=== PATIENT | male | born 1970 | race Caucasian/White ===

== ENCOUNTER 2017-12-31 08:59 | Emergency (ER) | payer SELFPAY ==
[~2017-12-31] VITALS: Ht 182.9 cm; Wt 97.5 kg
--- NOTE | 2017-12-31 09:37 | ED Respiratory ---
General Chief Complaint: Cough/Cold/Flu Symptoms Stated Complaint: COUGH,CHEST DISCOMFORT,WHEEZING Nursing Triage Note: c/o cough/congestion/wheezing with chest tightness. Onset 3-4 days ago. Persistant coughing spells reported. Source: patient Exam Limitations: no limitations History of Present Illness Date Seen by Provider: Dec 31, 2017 Time Seen by Provider: 09:15 Initial Comments This 47 and gentleman presents to the emergency room with primary complaint of cough and wheezing. His chest feels tight with his cough. The chest discomfort worsens with coughing and inspiration. He has had posttussive emesis as well. He denies fever. He's been using his father's inhaler which has been a little bit helpful temporarily. He chews tobacco but denies smoking. He does not drink alcohol. He has been afebrile. Allergies and Home Medications Allergies Coded Allergies: No Known Drug Allergies (Unverified , 12/31/17) Home Medications Albuterol Sulfate 1 Puff Puff, 1-4 PUFF IH Q4H PRN for SHORTNESS OF BREATH 1 PUFF = 90 MCG Prescribed by: MARCELLO GARSIA on 12/31/17 1056 Benzonatate 200 Mg Capsule, 200 MG PO TID PRN for COUGH Prescribed by: MARCELLO GARSIA on 12/31/17 1056 Prednisone 20 Mg Tab, 40 MG PO DAILY Prescribed by: MARCELLO GARSIA on 12/31/17 1056 Constitutional: no symptoms reported EENTM: no symptoms reported Respiratory: see HPI Cardiovascular: no symptoms reported Gastrointestinal: see HPI Genitourinary: no symptoms reported Musculoskeletal: no symptoms reported Skin: no symptoms reported Psychiatric/Neurological: No Symptoms Reported Hematologic/Lymphatic: No Symptoms Reported Past Nqxxhzm-Nyhpvr-Gnjhqb Hx Patient Social History Alcohol Use: Denies Use Recreational Drug Use: No Smoking Status: Never a Smoker Recent Foreign Travel: No Contact w/Someone Who Travel: No Recent Infectious Disease Expo: No Surgeries History of Surgeries: Yes (C6-C7 fusion, right shoulder repair) Surgeries: Orthopedic Respiratory History of Respiratory Disorde: No Cardiovascular History of Cardiac Disorders: Yes Cardiac Disorders: Heart Attack (states "stress related heart attack") Neurological History of Neurological Disord: No Genitourinary History of Genitourinary Disor: No Gastrointestinal History of Gastrointestinal Di: No Musculoskeletal History of Musculoskeletal Dis: No Endocrine History of Endocrine Disorders: No HEENT History of HEENT Disorders: No Cancer History of Cancer: No Psychosocial History of Psychiatric Problem: No Blood Transfusions History of Blood Disorders: No Physical Exam Vital Signs Vital Signs - First Documented 12/31/17 09:10 Temp 97.5 Pulse 90 Resp 18 B/P (MAP) 122/87 (99) Pulse Ox 95 O2 Delivery Room Air Capillary Refill : Less Than 3 Seconds General Appearance: WD/WN, no apparent distress HEENT: PERRL/EOMI, normal ENT inspection, TMs normal, pharynx normal Neck: normal inspection Respiratory: no respiratory distress, no accessory muscle use, wheezing, other (mildly delayed forced expiration. 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, no motor/sensory deficits, alert, normal mood/affect, oriented x 3 Skin: normal color, warm/dry Progress/Results/Core Measures Suspected Sepsis Recent Fever Within 48 Hours: No Infection Criteria Present: Suspected New Infection New/Unexplained Altered Menta: No Sepsis Screen: No Definite Risk Sepsis Diagnosis: SIRS Temperature:97.5 Pulse: 90 Respiratory Rate: 18 Blood Pressure 122 /87 Mean: 99 Results/Orders My Orders Orders - MARCELLO FARRELL MD Chest Pa/Lat (2 View) (12/31/17 09:33) Albuterol/Ipra Inhalation Soln (Duoneb I (12/31/17 09:45) Svn Sm Volume Nebulizer Rt-Rfs (12/31/17 09:33) Ketorolac Injection (Toradol Injection) (12/31/17 10:35) Medications Given in ED Current Medications Medications Dose Ordered Sig/Kena Route Start Time Stop Time Status Last Admin Dose Admin Albuterol/ Ipratropium 3 ml ONCE ONCE INH 12/31/17 09:45 12/31/17 09:46 DC 12/31/17 09:44 3 ML Ketorolac Tromethamine 30 mg STK-MED ONCE .ROUTE 12/31/17 10:35 12/31/17 10:39 DC 12/31/17 10:43 30 MG Vital Signs/I&O Vital Sign - Last 12Hours 12/31/17 12/31/17 12/31/17 12/31/17 09:10 09:45 10:43 11:03 Temp 97.5 97.5 97.5 Pulse 90 86 Resp 18 18 B/P (MAP) 122/87 (99) 122/84 (99) Pulse Ox 95 99 99 O2 Delivery Room Air Room Air Room Air Capillary Refill : Less Than 3 Seconds Blood Pressure Mean: 99 Progress Note #1: Time: 09:36 Progress Note Patient has been seen and examined. A DuoNeb treatment was ordered as well as a chest x-ray. I will reassess after the nebulizer treatment. Progress Note #2: Progress Note Chest pressure/tightness did improve some with DuoNeb. Chest x-ray was negative. I confirmed with patient that pain was secondary to paroxysms of coughing and not present otherwise or induced with by exertion. Patient was thought to have acute viral bronchitis. Diagnostic Imaging Diagonstic Imaging: Xray Plain Films/CT/US/NM/MRI: chest Comments Chest x-ray viewed by me and report reviewed. See report below: NAME: PENNY FOX MED REC#: [id number] PT STATUS: REG ER : 1970 PHYSICIAN: MARCELLO FARRELL MD ADMIT DATE: 12/31/17/ER Draft Date of Exam:12/31/17 CHEST PA/LAT (2 VIEW) INDICATION: Cough and chest pain. PA and lateral chest. Heart size and pulmonary vascularity normal. Lungs are clear. There are no effusions or pneumothoraces. IMPRESSION: Negative chest. Dictated on workstation # [id number] Dict: 12/31/17 1033 Trans: 12/31/17 1036 [facility] [id number] Interpreted by: JUSTIN AHMADI MD Departure Impression Impression: Primary Impression: Acute bronchitis Qualified Codes: J20.9 - Acute bronchitis, unspecified Additional Impression: Pleuritic chest pain Disposition: 01 HOME, SELF-CARE Condition: Improved Departure-Patient Inst. Decision time for Depature: 10:50 Referrals: NO,LOCAL PHYSICIAN (PCP/Family) Primary Care Physician Patient Instructions: Acute Bronchitis, Adult (DC) Add. Discharge Instructions: Drink plenty of clear liquids. For pain may take ibuprofen up to 600 mg every 6 hours as needed and/or Tylenol (acetaminophen) up to 1000 mg every 6 hours. For shortness of air use your inhaler up to 4 puffs and a 4 hour period of time. For cough you may also use either asxa-zwo-zstqqzm medications containing dextromethorphan (DM) or the Tessalon Perles as prescribed. Return to care if symptoms worsen. Establish care with a primary care provider. You may consider the [facility] which has a sliding scale payment plan for those without insurance. All discharge instructions reviewed with patient and/or family. Voiced understanding. Scripts Prednisone (Prednisone) 20 Mg Tab 40 MG PO DAILY, #8 TAB Prov: MARCELLO FARRELL MD 12/31/17 Benzonatate (Benzonatate) 200 Mg Capsule 200 MG PO TID Y for COUGH, #20 CAP Prov: MARCELLO FARRELL MD 12/31/17 Albuterol Sulfate (PROAIR HFA) 1 Puff Puff 1-4 PUFF IH Q4H Y for SHORTNESS OF BREATH, #1 PUFF 1 PUFF = 90 MCG Prov: MARCELLO FARRELL MD 12/31/17 MARCELLO FARRELL MD Dec 31, 2017 09:37
[2017-12-31] MEDS ORDERED: RT-ALBUTEROL/IPRATROPIUM 3 ML (DUONEB) VIAL INH ONE (09:45)
[2017-12-31] MEDS ORDERED: KETOROLAC 30 MG/ML VIAL ONE (10:35)
--- NOTE | 2017-12-31 10:37 | Diagnostic Imaging Report ---
INDICATION: Cough and chest pain. PA and lateral chest. Heart size and pulmonary vascularity normal. Lungs are clear. There are no effusions or pneumothoraces. IMPRESSION: Negative chest. Dictated by: Dictated on workstation # [id number]
[2017-12-31] MEDS ORDERED: RT-ALBUINH IH (10:56)
[2017-12-31] MEDS ORDERED: PRD20T PO (10:56)
[2017-12-31] MEDS ORDERED: BENZ200C51 PO (10:56)
[2017-12-31 11:03] VITALS: BP 122/84
== END 2017-12-31 11:03 | disposition home or self-care (01) ==
LOC: EDUNIT# 08:59 → ER 09:03
DX: J20.9 Acute bronchitis, unspecified (principal); R07.81 Pleurodynia; I25.2 Old myocardial infarction; Z79.52 Long term (current) use of systemic steroids; Z98.1 Arthrodesis status
CPT/HCPCS: 71046; 94640; 96374

== ENCOUNTER 2018-06-20 19:43 | Emergency (ER) | payer SELFPAY ==
[~2018-06-20] VITALS: Ht 188 cm; Wt 90.7 kg
[~2018-06-20 19:43] MED LIST: BENZ200C51 PO; PRD20T PO; RT-ALBUINH IH
--- NOTE | 2018-06-20 20:28 | Diagnostic Imaging Report ---
INDICATION: Back pain. Comparison is made with prior examination from 12/31/2017. FINDINGS: The heart size, mediastinal configuration, and pulmonary vascularity are within normal limits. There is no pleural effusion, pneumothorax, or pneumonia. The osseous structures are unremarkable. IMPRESSION: No acute cardiopulmonary abnormality. Dictated by: Dictated on workstation # [id number]
[2018-06-20 20:33] LABS: BILIRUBIN,URINE NEGATIVE (NEGATIVE); CLARITY,URINE CLEAR; COLOR,URINE YELLOW; GLUCOSE, URINE (UA) NEGATIVE (NEGATIVE); KETONES,URINE NEGATIVE (NEGATIVE); LEUKOCYTE ESTERASE ,URINE NEGATIVE (NEGATIVE); NITRITE,URINE NEGATIVE (NEGATIVE); PH,URINE 7 (5-9); PROTEIN,URINE NEGATIVE (NEGATIVE); UROBILINOGEN,URINE NORMAL (NORMAL)
--- NOTE | 2018-06-20 20:39 | Diagnostic Imaging Report ---
PROCEDURE: CT head and CT cervical spine without contrast. TECHNIQUE: Multiple contiguous axial images were obtained through the brain and cervical spine without the use of intravenous contrast. Sagittal and coronal reformations through the cervical spine were then performed. INDICATION: Head and neck pain. FINDINGS: The ventricles and sulci are within normal limits. There is no hydrocephalus. There is no midline shift. There is no intracranial mass, hemorrhage or extra-axial fluid collection. Calvarium is intact. The sinuses and mastoid air cells are clear. The alignment of the cervical spine is normal. There has been an anterior cervical fusion of C6-7. The vertebral body heights are well maintained. There is no fracture or traumatic subluxation. The odontoid is intact and the lateral masses are well aligned. The prevertebral soft tissues are within normal limits. IMPRESSION: 1. No acute intracranial abnormality. 2. Mild cervical spondylosis with previous anterior cervical fusion at C6-7. There is no acute fracture or traumatic subluxation. Dictated by: Dictated on workstation # [id number]
[2018-06-20 20:42] LABS: BACTERIA,URINE NEGATIVE /HPF; WBC,URINE RARE /HPF
[2018-06-20] MEDS ORDERED: KETOROLAC 30 MG/ML VIAL IVP ONE (20:45)
[2018-06-20] MEDS ORDERED: diphenhydrAMINE 50 MG/ML INJ (BENADRYL) IVP ONE (20:45)
[2018-06-20] MEDS ORDERED: ORPHENADRINE 60 MG/2 ML (NORFLEX) AMP IV ONE (20:45)
[2018-06-20 20:49] LABS: BASOPHILS % (AUTO) 1 % (0-10); EOSINOPHILS # (AUTO) 0.3 10^3/uL (0.0-0.3); EOSINOPHILS % (AUTO) 4 % (0-10); HEMATOCRIT 40 % (40-54); HEMOGLOBIN 14.1 G/DL (13.3-17.7); LYMPHOCYTES # (AUTO) 2.3 X 10^3 (1.0-4.0); LYMPHOCYTES % (AUTO) 32 % (12-44); MEAN CORPUSCULAR HEMOGLOBIN 29 PG (25-34); MEAN CORPUSCULAR HGB CONC 36 G/DL (32-36); MEAN CORPUSCULAR VOLUME 82 FL (80-99); MEAN PLATELET VOLUME 9.1 FL (7.4-10.4); MONOCYTES # (AUTO) 0.5 X 10^3 (0.0-1.0); MONOCYTES % (AUTO) 7 % (0-12); NEUTROPHILS # (AUTO) 4.1 X 10^3 (1.8-7.8); NEUTROPHILS % (AUTO) 56 % (42-75); PLATELET COUNT 275 10^3/uL (130-400); RED BLOOD COUNT 4.81 10^6/uL (4.35-5.85); WHITE BLOOD COUNT 7.3 10^3/uL (4.3-11.0)
[2018-06-20 20:53] LABS: AMPHETAMINE SCREEN, URINE NEGATIVE (NEGATIVE); BARBITURATE SCREEN URINE NEGATIVE (NEGATIVE); BENZODIAZEPINES SCREEN URINE NEGATIVE (NEGATIVE); CANNABINOID SCREEN, URINE NEGATIVE (NEGATIVE); COCAINE SCREEN URINE NEGATIVE (NEGATIVE); METHADONE STAT NEGATIVE (NEGATIVE); METHAMPHETAMINE SCREEN URINE S NEGATIVE (NEGATIVE); OPIATE SCREEN URINE NEGATIVE (NEGATIVE); OXYCODONE STAT NEGATIVE (NEGATIVE); PROPOXYPHENE STAT NEGATIVE (NEGATIVE); TRICYCLIC ANTIDEPRESSANTS SCRE NEGATIVE (NEGATIVE)
--- NOTE | 2018-06-20 20:55 | Diagnostic Imaging Report ---
INDICATION: Back pain. EXAMINATION: CT of the thoracolumbar spine. FINDINGS: The alignment of the thoracic and lumbar spine is normal. The vertebral body heights are well maintained. There is no spondylolysis or spondylolisthesis. No fractures are identified. There is no bony encroachment upon the spinal canal. The visualized lungs are clear. The visualized intraabdominal structures are unremarkable. There is mild lower lumbar hypertrophic degenerative facet disease. IMPRESSION: 1. No acute fracture or traumatic subluxation of the thoracic lumbar spine. 2. Mild lower lumbar hypertrophic degenerative facet disease. Dictated by: Dictated on workstation # [id number]
[2018-06-20 21:01] LABS: INR 1.1 (0.8-1.4); PROTHROMBIN TIME PATIENT 14.5 SEC (12.2-14.7)
[2018-06-20 21:14] LABS: ALANINE AMINOTRANSFERASE 17 U/L (0-55); ALBUMIN 3.9 GM/DL (3.2-4.5); ALKALINE PHOSPHATASE 51 U/L (40-136); BILIRUBIN,TOTAL 0.4 MG/DL (0.1-1.0); BUN/CREATININE RATIO 17; CARBON DIOXIDE 21 MMOL/L (21-32); CHLORIDE 107 MMOL/L (98-107); CREATININE SERUM 0.96 MG/DL (0.60-1.30); GFR ESTIMATED > 60; GLUCOSE 115 MG/DL (70-105); POTASSIUM 3.4 MMOL/L (3.6-5.0); SODIUM 138 MMOL/L (135-145); TOTAL PROTEIN 6.8 GM/DL (6.4-8.2)
[2018-06-20] MEDS ORDERED: RX-CYCLOBENZAPRINE 10 MG (FLEXERIL) TAB PPK#3 PO STA (21:17)
[2018-06-20] MEDS ORDERED: RX-NAPROXEN (NAPROSYN) 250 MG TAB PPK#4 PO STA (21:17)
[2018-06-20] MEDS ORDERED: METH4TAB PO (21:22)
[2018-06-20] MEDS ORDERED: CYCL10TA9 PO (21:22)
--- NOTE | 2018-06-20 21:22 | ED Neck-Back Pain/Injury ---
General Chief Complaint: Head/Cervical Problems Stated Complaint: FALL Nursing Triage Note: pt states rolled over in bed hit head on window, now has pain/numbness in mik extremities. pt verbalized can feel but has numbness, able to move mik toes and squeeze hands mik. Nursing Sepsis Screen: No Definite Risk Source of Information: Patient, EMS History of Present Illness Date Seen by Provider: Jun 20, 2018 Time Seen by Provider: 19:45 Initial Comments PT ARRIVES VIA [facility] FROM HOME + CERVICAL COLLAR IN PLACE PT STATES AROUND 1800 TONIGHT, HE ROLLED OVER IN BED AND BUMPED HIS HEAD ON WINDOW SILL STATES THAT "INSTANTLY MY WHOLE BODY LOCKED UP" NO LOSS OF CONSCIOUSNESS C/O NECK, BACK AND BILATERAL SHOULDER PAIN--DOES HAVE CHRONIC PAIN IN ALL THESE AREAS, AND HAS HYDROCODONE AT HOME, BUT DID NOT TAKE IT OR ANYTHING ELSE FOR PAIN STATES HE HAS TINGLING/NUMBNESS IN HIS ARMS AND LEGS, BUT CAN MOVE THEM, AND CAN FEEL THEM. EMS GAVE 100 MCG FENTANYL PRIOR TO ARRIVAL. PT STATES NOW HE DOES NOT FEEL NUMB AND TINGLY NO HEAD PAIN NO VISION CHANGES NO NAUSEA/VOMITING NO DIZZINESS PT HAS HAD PRIOR NECK INJURY IN 2015 AND HAD CERVICAL SPINE SURGERY 03/2017 BY [facility]/[place]. DOES NOT SEE THAT DR OR ANYONE ANYMORE. Other Comments NO PCP Allergies and Home Medications Allergies Coded Allergies: No Known Drug Allergies (Unverified , 12/31/17) Home Medications Albuterol Sulfate 1 Puff Puff, 1-4 PUFF IH Q4H PRN for SHORTNESS OF BREATH 1 PUFF = 90 MCG Prescribed by: MARCELLO GARSIA on 12/31/17 105 Benzonatate 200 Mg Capsule, 200 MG PO TID PRN for COUGH Prescribed by: MARCELLO GARSIA on 12/31/17 105 Cyclobenzaprine HCl 10 Mg Tablet, 10 MG PO Q8H Prescribed by: TRACI COOPER on 06/20/182121 Methylprednisolone 4 Mg Tab.ds.pk, 4 MG PO UD Prescribed by: TRACI COOPER on 06/20/182121 Prednisone 20 Mg Tab, 40 MG PO DAILY Prescribed by: MARCELLO GRASIA on 12/31/17 1056 Patient Home Medication List Home Medication List Reviewed: Yes Constitutional: no symptoms reported EENTM: no symptoms reported Respiratory: no symptoms reported Cardiovascular: no symptoms reported Gastrointestinal: no symptoms reported Genitourinary: no symptoms reported Musculoskeletal: see HPI, back pain, neck pain, other (BILATERAL SHOULDER PAIN ) Skin: no symptoms reported Psychiatric/Neurological: See HPI; Denies Headache; Numbness, Paresthesia, Tingling; Denies Weakness Past Lrdrulj-Aniiaj-Nhxggc Hx Patient Social History Alcohol Use: Denies Use Recreational Drug Use: No (DENIES) Smoking Status: Current Everyday Smoker (1 PPD) Type Used: Cigarettes (1 PPD) Recent Foreign Travel: No Contact w/Someone Who Travel: No Recent Infectious Disease Expo: No Past Medical History Surgeries: Yes (C6-C7 fusion, right shoulder repair) Orthopedic Respiratory: No Cardiac: Yes (PT STATES "STRESS HEART ATTACK" NO INTERVENTION) Heart Attack Neurological: No Genitourinary: No Gastrointestinal: No Musculoskeletal: Yes (CHRONIC NECK, BACK AND SHOULDER PAIN ) Chronic Back Pain Endocrine: No HEENT: No Cancer: No Psychosocial: No Integumentary: No Blood Disorders: No Physical Exam Vital Signs Vital Signs - First Documented 06/20/18 19:54 Temp 97.9 Pulse 77 Resp 20 B/P (MAP) 145/103 (117) Pulse Ox 96 O2 Delivery Room Air Capillary Refill : Less Than 3 Seconds Height, Weight, BMI Height: 6'2.00" Weight: 200lbs. oz. 90.103941da; BMI Method:Stated General Appearance: No Apparent Distress, WD/WN, Other (VERY DRAMATIC AND MARKEDLY EXAGGERATED PAIN RESPONSE) HEENT: PERRL/EOMI, Other (EXTENSIVE DENTAL DECAY--NEARLY ALL TEETH DECAYED DOWN TO GUMS. NO EXTERNAL EVIDENCE OF TRAUMA TO HEAD) Neck: Other (IN CERVICAL COLLAR ) Cardiovascular: Regular Rate, Rhythm, No Edema, No JVD, No Murmur, Normal Peripheral Pulses Respiratory: Normal Breath Sounds, No Accessory Muscle Use, No Respiratory Distress Peripheral Pulses: 2+ Dorsalis Pedis (R), 2+ Left Dors-Pedis (L), 2+ Radial Pulses (R), 2+ Radial Pulses (L) Gastrointestinal: Normal Bowel Sounds, No Organomegaly, No Pulsatile Mass, Non Tender, Soft Back: Other (DIFFUSE TENDERNESS) Extremity: Normal Capillary Refill, Normal Inspection, Normal Range of Motion, No Calf Tenderness, No Pedal Edema, Other (DTR'S INTACT AND EQUAL IN ALL EXTREMITIES) Neurologic/Psychiatric: Alert, Oriented x3, No Motor/Sensory Deficits, mis manager II- XII Norm as Tested Skin: Normal Color, Warm/Dry, Other (NO EXTERNAL EVIDENCE OF TRAUMA ANYWHERE) Progress/Results/Core Measures Results/Orders Lab Results Laboratory Tests Test 06/20/18 20:29 06/20/18 20:40 Range/Units Urine Color YELLOW Urine Clarity CLEAR Urine pH 7 5-9 Urine Specific [place] 1.010 L 1.016-1.022 Urine Protein NEGATIVE NEGATIVE Urine Glucose (UA) NEGATIVE NEGATIVE Urine Ketones NEGATIVE NEGATIVE Urine Nitrite NEGATIVE NEGATIVE Urine Bilirubin NEGATIVE NEGATIVE Urine Urobilinogen NORMAL NORMAL MG/DL Urine Leukocyte Esterase NEGATIVE NEGATIVE Urine RBC (Auto) NEGATIVE NEGATIVE Urine RBC NONE /HPF Urine WBC RARE /HPF Urine Crystals NONE /LPF Urine Bacteria NEGATIVE /HPF Urine Casts NONE /LPF Urine Mucus NEGATIVE /LPF Urine Culture Indicated NO Urine Opiates Screen NEGATIVE NEGATIVE Urine Oxycodone Screen NEGATIVE NEGATIVE Urine Methadone Screen NEGATIVE NEGATIVE Urine Propoxyphene Screen NEGATIVE NEGATIVE Urine Barbiturates Screen NEGATIVE NEGATIVE Ur Tricyclic Antidepressants Screen NEGATIVE NEGATIVE Urine Phencyclidine Screen NEGATIVE NEGATIVE Urine Amphetamines Screen NEGATIVE NEGATIVE Urine Methamphetamines Screen NEGATIVE NEGATIVE Urine Benzodiazepines Screen NEGATIVE NEGATIVE Urine Cocaine Screen NEGATIVE NEGATIVE Urine Cannabinoids Screen NEGATIVE NEGATIVE White Blood Count 7.3 4.3-11.0 10^3/uL Red Blood Count 4.81 4.35-5.85 10^6/uL Hemoglobin 14.1 13.3-17.7 G/DL Hematocrit 40 40-54 % Mean Corpuscular Volume 82 80-99 FL Mean Corpuscular Hemoglobin 29 25-34 PG Mean Corpuscular Hemoglobin Concent 36 32-36 G/DL Red Cell Distribution Width 13.0 10.0-14.5 % Platelet Count 275 130-400 10^3/uL Mean Platelet Volume 9.1 7.4-10.4 FL Neutrophils (%) (Auto) 56 42-75 % Lymphocytes (%) (Auto) 32 12-44 % Monocytes (%) (Auto) 7 0-12 % Eosinophils (%) (Auto) 4 0-10 % Basophils (%) (Auto) 1 0-10 % Neutrophils # (Auto) 4.1 1.8-7.8 X 10^3 Lymphocytes # (Auto) 2.3 1.0-4.0 X 10^3 Monocytes # (Auto) 0.5 0.0-1.0 X 10^3 Eosinophils # (Auto) 0.3 0.0-0.3 10^3/uL Basophils # (Auto) 0.0 0.0-0.1 10^3/uL Prothrombin Time 14.5 12.2-14.7 SEC INR Comment 1.1 0.8-1.4 Activated Partial Thromboplast Time 27 24-35 SEC Sodium Level 138 135-145 MMOL/L Potassium Level 3.4 L 3.6-5.0 MMOL/L Chloride Level 107 98-107 MMOL/L Carbon Dioxide Level 21 21-32 MMOL/L Anion Gap 10 5-14 MMOL/L Blood Urea Nitrogen 16 7-18 MG/DL Creatinine 0.96 0.60-1.30 MG/DL Estimat Glomerular Filtration Rate > 60 BUN/Creatinine Ratio 17 Glucose Level 115 H 70-105 MG/DL Calcium Level 9.0 8.5-10.1 MG/DL Corrected Calcium 9.1 8.5-10.1 MG/DL Total Bilirubin 0.4 0.1-1.0 MG/DL Aspartate Amino Transf (AST/SGOT) 20 5-34 U/L Alanine Aminotransferase (ALT/SGPT) 17 0-55 U/L Alkaline Phosphatase 51 40-136 U/L Total Protein 6.8 6.4-8.2 GM/DL Albumin 3.9 3.2-4.5 GM/DL Serum Alcohol < 10 <10 MG/DL My Orders Orders - TRACI COOPER DO Ct Head/Cervical Spine Wo (06/20/18 19:53) Ct Thoracic/Lumbar Spine Wo (06/20/18 19:53) Saline Lock/Iv-Start (06/20/18 19:53) Alcohol (06/20/18 19:53) Cbc With Automated Diff (06/20/18 19:53) Comprehensive Metabolic Panel (06/20/18 19:53) Drug Screen Stat (Urine) (06/20/18 19:53) Protime With Inr (06/20/18 19:53) Partial Thromboplastin Time (06/20/18 19:53) Ua Culture If Indicated (06/20/18 19:53) Chest 1 View, Ap/Pa Only (06/20/18 19:53) Ketorolac Injection (Toradol Injection) (06/20/18 20:45) Orphenadrine Injection (Norflex Injectio (06/20/18 20:45) Diphenhydramine Injection (Benadryl Inje (06/20/18 20:45) Rx-Cyclobenzaprine Tablet (Rx-Flexeril T (06/20/18 21:17) Rx-Naproxen (Rx-Naprosyn) (06/20/18 21:17) Medications Given in ED Current Medications Medications Dose Ordered Sig/Kena Route Start Time Stop Time Status Last Admin Dose Admin Diphenhydramine HCl 50 mg ONCE ONCE IVP 06/20/18 20:45 06/20/18 20:46 DC 06/20/18 20:55 50 MG Ketorolac Tromethamine 30 mg ONCE ONCE IVP 06/20/18 20:45 06/20/18 20:46 DC 06/20/18 20:55 30 MG Orphenadrine Citrate 60 mg ONCE ONCE IV 06/20/18 20:45 06/20/18 20:46 DC 06/20/18 20:55 60 MG Vital Signs/I&O 06/20/18 06/20/18 19:54 21:45 Temp 97.9 97.9 Pulse 77 78 Resp 20 20 B/P (MAP) 145/103 (117) 143/99 (117) Pulse Ox 96 96 O2 Delivery Room Air Blood Pressure Mean: 117 Progress Progress Note : Progress Note PT STATES MULTIPLE TIMES DURING ER STAY, " I DON'T LIKE MORPHINE" PT ALSO STATES MULTIPLE TIMES "I CAN TAKE THE HYDRO 10'S, BUT I CAN'T TAKE THE 5 'S--IT FREAKS ME OUT, SO I CUT IT IN HALF AND I DO OK" CERVICAL COLLAR REMOVED AFTER RECEIVING RADIOLOGIST REPORTS PT GIVEN TORADOL, NORFLEX AND BENADRYL PT SLEPT FOR REMAINDER OF ER STAY PT ABLE TO SIT UP AND STAND ON OWN PRIOR TO DISMISSAL NO PARESTHESIAS OR MOTOR DEFICITS ON DISMISSAL Diagnostic Imaging Comments CT HEAD/CERVICAL SPINE--NO ACUTE PROCESS, POST-OP AND DEGENERATIVE CHANGES ON CERVICAL SPINE--PER RADIOLOGIST REPORT AT 2036 CT THORACIC/LUMBAR SPINE--NO ACUTE PROCESS, PER RADIOLOGIST REPORT CXR--NO ACUTE PROCESS, PER RADIOLOGIST REPORT Reviewed: Reviewed by Me Departure Impression Primary Impression: CERVICAL, THORACIC AND LUMBAR PAIN/STRAIN Additional Impressions: EXACERABATION OF CHRONIC NECK AND BACK PAIN Minor head injury without loss of consciousness Disposition: 01 HOME, SELF-CARE Condition: Improved Departure-Patient Inst. Referrals: NO,LOCAL PHYSICIAN (PCP/Family) Primary Care Physician Patient Instructions: CHRONIC PAIN, Cervical Muscle Strain (DC), Low Back Pain (DC), Minor Head Injury (DC), Upper Back Pain Add. Discharge Instructions: ALTERNATE ICE AND HEAT TO SORE AREAS AT 20 MINUTE INTERVALS FOLLOW UP WITH DRAlisson OF CHOICE IN 2-3 DAYS IF NO BETTER RETURN TO ER IF WORSE All discharge instructions reviewed with patient and/or family. Voiced understanding. Scripts Cyclobenzaprine HCl (Cyclobenzaprine HCl) 10 Mg Tablet 10 MG PO Q8H, #15 TAB Prov: TRACI COOPER DO 06/20/18 Methylprednisolone (Medrol) 4 Mg Tab.ds.pk 4 MG PO UD, #1 PKG Prov: TRACI COOPER DO 06/20/18 TRACI COOPER DO Jun 20, 2018 21:22
[2018-06-20 21:45] VITALS: BP 143/99
== END 2018-06-20 21:45 | disposition home or self-care (01) ==
LOC: EDUNIT# 19:43 → ER 19:45
DX: S09.90XA Unspecified injury of head, initial encounter (principal); S16.1XXA Strain of muscle, fascia and tendon at neck level, initial encounter; S39.012A Strain of muscle, fascia and tendon of lower back, initial encounter; S29.012A Strain of muscle and tendon of back wall of thorax, initial encounter; I25.2 Old myocardial infarction; F17.210 Nicotine dependence, cigarettes, uncomplicated; Z98.1 Arthrodesis status; W22.09XA Striking against other stationary object, initial encounter
CPT/HCPCS: 36415; 70450; 71045; 72125; 72128; 72131; 80053; 80306; 80320; 81000; 85025; 85610; 85730

== ENCOUNTER 2018-08-05 19:36 | Emergency (ER) | payer SELFPAY ==
[~2018-08-05] VITALS: Ht 182.9 cm; Wt 99.8 kg
[~2018-08-05 19:36] MED LIST changes: +CYCL10TA9 PO; +METH4TAB PO
--- OUTSIDE RECORDS SUMMARY | 2018-08-05 19:41 | XMS REPORT ---
Author Author BELGICA HATFIELD [facility] Address [address] [place] [address] Care Team Providers Care Road Sign Installer Name Role Phone BELGICA HATFIELD Unavailable PROBLEMS Unknown Problems ALLERGIES No Information ENCOUNTERS Encounter Location Date Diagnosis [facility] [address] [facility] [id number] [id number] Jul, [facility] [id number] [id number] Jun, [facility] [id number] [id number] Jun, Bilateral leg numbness R20.0 and Elevated BP without diagnosis of hypertension R03.0 IMMUNIZATIONS No Known Immunizations SOCIAL HISTORY Never Assessed REASON FOR VISIT FYI only PLAN OF CARE VITAL SIGNS MEDICATIONS Unknown Medications RESULTS No Results PROCEDURES No Known procedures INSTRUCTIONS MEDICATIONS ADMINISTERED No Known Medications MEDICAL (GENERAL) HISTORY Type Description Date Medical History Cervical Fusion Surgical History Cervical Fusion C6-C7 03/2017 Surgical History rotator cuff tear repair, right shoulder 04/2017
--- OUTSIDE RECORDS SUMMARY | 2018-08-05 19:41 | XMS REPORT ---
Author Author BELGICA HAFTIELD Organization [facility] Address [address] [place] [address] Care Team Providers Care Automatic Driller And Reamer Name Role Phone BELGICA HATFIELD Unavailable PROBLEMS Unknown Problems ALLERGIES No Known Allergies ENCOUNTERS Encounter Location Date Diagnosis [facility] [address] [facility] [id number] [phone] Jul, [facility] [address] [facility] [id number] [id number] Jun, [facility] [address] [facility] [id number] [id number] Jun, Bilateral leg numbness R20.0 and Elevated BP without diagnosis of hypertension R03.0 IMMUNIZATIONS No Known Immunizations SOCIAL HISTORY Never Assessed REASON FOR VISIT Pt c/c hit head on window seal in bed on Thursday, went to [facility] ER, CT head, neck, spine normal. Continues to have numbness down both legs. HX cervical fusion C6- C7 Carlos LIMON PLAN OF CARE Activity Details Follow Up 4 Weeks, prn Reason:Establish Care with Dr. Isabel/[facility] VITAL SIGNS Height 72 in 2018-06-23 Weight 214.6 lbs 2018-06-23 Temperature 97 degrees Fahrenheit 2018-06-23 Heart Rate 80 bpm 2018-06-23 Respiratory Rate 16 2018-06-23 BMI 29.10 kg/m2 2018-06-23 Blood pressure systolic 138 mmHg 2018-06-23 Blood pressure diastolic 90 mmHg 2018-06-23 MEDICATIONS Medication Instructions Dosage Frequency Start Date End Date Duration Status Flexeril 10 1 tablet 12h Active RESULTS No Results PROCEDURES No Known procedures INSTRUCTIONS MEDICATIONS ADMINISTERED No Known Medications MEDICAL (GENERAL) HISTORY Type Description Date Medical History Cervical Fusion Surgical History Cervical Fusion C6-C7 03/2017 Surgical History rotator cuff tear repair, right shoulder 04/2017
[2018-08-05] MEDS ORDERED: APAP 300 MG/CODEINE 30 MG (TYLENOL #3) TAB PO ONE ×2 (20:00→21:30)
--- NOTE | 2018-08-05 20:00 | ED Abdominal Pain ---
General Stated Complaint: COUGH,SIDE PAIN WHEN COUGHING,SOB Source of Information: Patient Exam Limitations: No Limitations History of Present Illness Date Seen by Provider: Aug 05, 2018 Time Seen by Provider: 19:58 Initial Comments To ER with reports of left lower quadrant abdominal pain for the past one to 2 days. For about the past 1-1/2 weeks he's had a nonproductive cough and shortness of breath. He saw [facility] last week and was given antibiotics (he states he is still on an antibiotic but unsure of the name), an inhaler and received a shot of steroids. However he continues to cough and when he does he has severe pain in his left lower abdomen. No bowel changes. Timing/Duration: 1-2 Days Severity/Quality: Moderate Location: LLQ Associated Symptoms: No Fever/Chills, No Nausea/Vomiting Allergies and Home Medications Allergies Coded Allergies: No Known Drug Allergies (Unverified , 12/31/17) Home Medications Acetaminophen with Codeine 1 Each Tablet, 1 EACH PO Q4H PRN for COUGH Prescribed by: MAKSIM MENEZES on 08/05/182034 Amoxicillin/Potassium Clav 1 Each Tablet, 1 EACH PO BID Prescribed by: MAKSIM MENEZES on 08/05/182124 Benzonatate 100 Mg Capsule, 200 MG PO TID Prescribed by: MAKSIM MENEZES on 08/05/182034 Patient Home Medication List Home Medication List Reviewed: Yes Review of Systems Review of Systems Constitutional: see HPI, chills; No fever EENTM: No Symptoms Reported Respiratory: See HPI, Cough, Shortness of Air Cardiovascular: No Symptoms Reported Gastrointestinal: See HPI, Abdominal Pain Genitourinary: No Symptoms Reported Musculoskeletal: no symptoms reported Skin: no symptoms reported Past Oiyfjyi-Qdjyrw-Mzchmv Hx Patient Social History Type Used: Cigarettes Recent Foreign Travel: No Contact w/Someone Who Travel: No Past Medical History Surgeries: Yes (C6-C7 fusion, right shoulder repair) Orthopedic Respiratory: No Cardiac: Yes (PT STATES "STRESS HEART ATTACK" NO INTERVENTION) Heart Attack Neurological: No Genitourinary: No Gastrointestinal: No Musculoskeletal: Yes (CHRONIC NECK, BACK AND SHOULDER PAIN ) Chronic Back Pain Endocrine: No HEENT: No Cancer: No Psychosocial: No Integumentary: No Blood Disorders: No Physical Exam Vital Signs Vital Signs - First Documented 08/05/18 19:55 Temp 97.8 Pulse 78 Resp 18 B/P (MAP) 142/90 (107) Pulse Ox 96 O2 Delivery Room Air Capillary Refill : Height/Weight/BMI Height: 6'2.00" Weight: 200lbs. oz. 90.366588yb; BMI Method:Stated General Appearance: WD/WN, no apparent distress HEENT: PERRL/EOMI, normal ENT inspection Respiratory: no respiratory distress, no accessory muscle use Cardiovascular: regular rate, rhythm, no murmur Gastrointestinal: normal bowel sounds, soft, tenderness (left lower abdomen) Extremities: normal range of motion, non-tender Progress/Results/Core Measures Results/Orders Lab Results Laboratory Tests Test 08/05/18 20:00 Range/Units White Blood Count 9.3 4.3-11.0 10^3/uL Red Blood Count 4.45 4.35-5.85 10^6/uL Hemoglobin 13.4 13.3-17.7 G/DL Hematocrit 38 L 40-54 % Mean Corpuscular Volume 85 80-99 FL Mean Corpuscular Hemoglobin 30 25-34 PG Mean Corpuscular Hemoglobin Concent 36 32-36 G/DL Red Cell Distribution Width 12.8 10.0-14.5 % Platelet Count 309 130-400 10^3/uL Mean Platelet Volume 8.8 7.4-10.4 FL Neutrophils (%) (Auto) 62 42-75 % Lymphocytes (%) (Auto) 29 12-44 % Monocytes (%) (Auto) 8 0-12 % Eosinophils (%) (Auto) 1 0-10 % Basophils (%) (Auto) 0 0-10 % Neutrophils # (Auto) 5.8 1.8-7.8 X 10^3 Lymphocytes # (Auto) 2.7 1.0-4.0 X 10^3 Monocytes # (Auto) 0.7 0.0-1.0 X 10^3 Eosinophils # (Auto) 0.1 0.0-0.3 10^3/uL Basophils # (Auto) 0.0 0.0-0.1 10^3/uL Sodium Level 140 135-145 MMOL/L Potassium Level 3.6 3.6-5.0 MMOL/L Chloride Level 107 98-107 MMOL/L Carbon Dioxide Level 23 21-32 MMOL/L Anion Gap 10 5-14 MMOL/L Blood Urea Nitrogen 21 H 7-18 MG/DL Creatinine 0.86 0.60-1.30 MG/DL Estimat Glomerular Filtration Rate > 60 BUN/Creatinine Ratio 24 Glucose Level 117 H 70-105 MG/DL Calcium Level 8.9 8.5-10.1 MG/DL Corrected Calcium 9.1 8.5-10.1 MG/DL Total Bilirubin 0.2 0.1-1.0 MG/DL Aspartate Amino Transf (AST/SGOT) 26 5-34 U/L Alanine Aminotransferase (ALT/SGPT) 30 0-55 U/L Alkaline Phosphatase 52 40-136 U/L Total Protein 7.0 6.4-8.2 GM/DL Albumin 3.7 3.2-4.5 GM/DL My Orders Orders - MAKSIM MENEZES APRN Acetaminophen/Codeine Tablet (Tylenol W/ (08/05/18 20:00) Cbc With Automated Diff (08/05/18 19:57) Comprehensive Metabolic Panel (08/05/18 19:57) Chest Pa/Lat (2 View) (08/05/18 19:57) Iv Heplock-Insert (Order) (08/05/18 19:57) Ct Abdomen/Pelvis W (08/05/18 19:57) Iohexol Injection (Omnipaque 350 Mg/Ml 1 (08/05/18 20:30) Sodium Chloride Flush (Catheter Flush Sy (08/05/18 20:30) Ns (Ivpb) (Sodium Chloride 0.9%) (08/05/18 20:30) Pharmacy Communication (Pharmacy Communi (08/05/18 20:23) Benzonatate Capsule (Tesgiacomo Mojica) (08/05/18 20:45) Medications Given in ED Current Medications Medications Dose Ordered Sig/Kena Route Start Time Stop Time Status Last Admin Dose Admin Acetaminophen/ Codeine Phosphate 1 tab ONCE ONCE PO 08/05/18 20:00 08/05/18 20:01 DC 08/05/18 20:10 1 TAB Iohexol 100 ml ONCE ONCE IV 08/05/18 20:30 08/05/18 20:31 DC 08/05/18 20:49 100 ML Sodium Chloride 10 ml NEEDED PRN IV 08/05/18 20:30 08/05/18 20:49 10 ML Sodium Chloride 250 ml ONCE ONCE IV 10/4/18 20:30 08/05/18 20:31 DC 08/05/18 20:50 80 ML Vital Signs/I&O 08/05/18 19:55 Temp 97.8 Pulse 78 Resp 18 B/P (MAP) 142/90 (107) Pulse Ox 96 O2 Delivery Room Air Departure Impression Primary Impression: abdominal wall muscle strain Additional Impression: Pneumonia Disposition: HOME, SELF-CARE Condition: Stable Departure-Patient Inst. Decision time for Depature: 20:33 Referrals: [facility] (PCP/Family) Primary Care Physician Patient Instructions: Community-Acquired Pneumonia in Adults Add. Discharge Instructions: 1. Cough medication as directed 2. Antibiotic as directed 3. Follow-up with your doctor next week Scripts Amoxicillin/Potassium Clav (Augmentin 875-125 Tablet) 1 Each Tablet 1 EACH PO BID, #14 TAB Prov: MAKISM MENEZES APRN 08/05/18 Benzonatate (TESSALON PERLES) 100 Mg Capsule 200 MG PO TID, #20 CAP Prov: MAKSIM MENEZES APRN 08/05/18 Acetaminophen with Codeine (Tylenol with Codeine #3 Tablet) 1 Each Tablet 1 EACH PO Q4H PRN for COUGH, #20 TAB Prov: MAKSIM MENEZES APRN 08/05/18 Work/School Note: Work Release Form Date Seen in the Emergency Department: Aug 05, 2018 Return to Work: Aug 07, 2018 MAKSIM MENEZES APRN Aug 05, 2018 20:00
[2018-08-05 20:10] LABS: BASOPHILS % (AUTO) 0 % (0-10); EOSINOPHILS # (AUTO) 0.1 10^3/uL (0.0-0.3); EOSINOPHILS % (AUTO) 1 % (0-10); HEMATOCRIT 38 % (40-54); HEMOGLOBIN 13.4 G/DL (13.3-17.7); LYMPHOCYTES # (AUTO) 2.7 X 10^3 (1.0-4.0); LYMPHOCYTES % (AUTO) 29 % (12-44); MEAN CORPUSCULAR HEMOGLOBIN 30 PG (25-34); MEAN CORPUSCULAR HGB CONC 36 G/DL (32-36); MEAN CORPUSCULAR VOLUME 85 FL (80-99); MEAN PLATELET VOLUME 8.8 FL (7.4-10.4); MONOCYTES # (AUTO) 0.7 X 10^3 (0.0-1.0); MONOCYTES % (AUTO) 8 % (0-12); NEUTROPHILS # (AUTO) 5.8 X 10^3 (1.8-7.8); NEUTROPHILS % (AUTO) 62 % (42-75); PLATELET COUNT 309 10^3/uL (130-400); RED BLOOD COUNT 4.45 10^6/uL (4.35-5.85); RED CELL DISTRIBUTION WIDTH 12.8 % (10.0-14.5); WHITE BLOOD COUNT 9.3 10^3/uL (4.3-11.0)
[2018-08-05 20:27] LABS: ALANINE AMINOTRANSFERASE 30 U/L (0-55); ALBUMIN 3.7 GM/DL (3.2-4.5); ALKALINE PHOSPHATASE 52 U/L (40-136); BILIRUBIN,TOTAL 0.2 MG/DL (0.1-1.0); BUN/CREATININE RATIO 24; CALCIUM 8.9 MG/DL (8.5-10.1); CARBON DIOXIDE 23 MMOL/L (21-32); CHLORIDE 107 MMOL/L (98-107); CREATININE SERUM 0.86 MG/DL (0.60-1.30); GFR ESTIMATED > 60; GLUCOSE 117 MG/DL (70-105); POTASSIUM 3.6 MMOL/L (3.6-5.0); SODIUM 140 MMOL/L (135-145)
[2018-08-05] MEDS ORDERED: CATHETER FLUSH 10 ML SYR IV PRN (20:30)
[2018-08-05] MEDS ORDERED: IOHEXOL 350 MG/ML 100 ML (OMNIPAQUE 350) VIAL IV ONE (20:30)
[2018-08-05] MEDS ORDERED: NS 250 ML (IVPB) BAG IV ONE (20:30)
[2018-08-05] MEDS ORDERED: ACET-789 PO (20:35)
[2018-08-05] MEDS ORDERED: BENZ100C18 PO (20:35)
[2018-08-05] MEDS ORDERED: BENZONATATE 100 MG (TESSALON) CAPSULE PO SCH (20:45)
--- NOTE | 2018-08-05 21:07 | Diagnostic Imaging Report ---
EXAMINATION: PA and lateral chest are compared to prior study from 06/20/2018. INDICATION: Cough and chest pain. FINDINGS: There is abnormal density present within the mid aspect of the right lung which appears new compared to the previous exam. Small region of density within the right mid lung appears to be secondary to superimposition of the scapula, two ribs and adjacent bronchovascular structures. There is a question of lower lobe consolidation the lateral view. There is no effusion. There is no pneumothorax. The heart size appears appropriate. There are prior operative changes of an anterior cervical fusion IMPRESSION: 1. There is questioned right lower lobe consolidation on the lateral view. Lungs otherwise appear clear. Dictated by: Dictated on workstation # [id number]
--- NOTE | 2018-08-05 21:16 | Diagnostic Imaging Report ---
PROCEDURE: CT abdomen and pelvis with contrast. TECHNIQUE: Multiple contiguous axial images were obtained through the abdomen and pelvis after administration of intravenous contrast. INDICATION: Left flank pain and cough. FINDINGS: The visualized lung bases demonstrate abnormal consolidation within the right lower lobe adjacent to the inferior aspect of the right hilum most compatible with a pneumonia. Left lung base appears clear. The liver demonstrates no evidence of a focal intrahepatic abnormality. The gallbladder is nondistended without radiodense gallstone or biliary dilatation. The spleen is normal in size. Pancreas unremarkable. There is no adrenal mass. Kidneys enhance normally and appear nonobstructed. The small and large bowel are normal in caliber without obstruction or evidence of abnormal bowel thickening. The appendix appears normal. There is moderate stool within the colon. There is no free air, free fluid or abscess. The urinary bladder is nondistended. There are no pathologically enlarged abdominal or pelvic lymph nodes. Aorta is normal in caliber. No acute or suspicious osseous abnormality is demonstrated. IMPRESSION: 1. Abnormal consolidation demonstrated within the medial and inferior aspect of the right lower lobe along the inferior aspect of the right hilum. This is most compatible with pneumonia. As this is not well delineated on chest radiography, this will likely need to be followed to resolution with a repeat CT. 2. No acute inflammatory or obstructive process evident within the abdomen or pelvis. Dictated by: Dictated on workstation # [id number]
[2018-08-05] MEDS ORDERED: AMOX-358 PO (21:25)
[2018-08-05] MEDS ORDERED: cefTRIAXone 1 GM/10 ML for IV (ROCEPHIN) ONE (21:51)
[2018-08-05] MEDS ORDERED: cefTRIAXone 1,000 MG/2.86 ml vial (IM ONLY) IM SCH (22:00)
[2018-08-05 22:02] VITALS: BP 123/82
== END 2018-08-05 22:01 | disposition home or self-care (01) ==
LOC: EDUNIT# 19:36 → ER 19:37
DX: S39.011A Strain of muscle, fascia and tendon of abdomen, initial encounter (principal); J18.9 Pneumonia, unspecified organism; I25.2 Old myocardial infarction; Z98.1 Arthrodesis status; X58.XXXA Exposure to other specified factors, initial encounter
CPT/HCPCS: 36415; 71046; 74177; 80053; 85025

== ENCOUNTER → 2018-08-12 | Outpatient (CLI) | payer SELFPAY ==
[~2018-08-12] MED LIST changes: +ACET-789 PO; +AMOX-358 PO; +BENZ100C18 PO
--- NOTE | 2018-08-12 17:37 | Diagnostic Imaging Report ---
INDICATION: Pneumonia. TECHNIQUE: Two-view chest at 02:25 p.m. CORRELATION STUDY: 08/05/2018. FINDINGS: The heart size, mediastinal configuration and pulmonary vasculature are relatively stable. Patchy density at the right mid lung persists. There do appear to be perhaps new small patchy areas of density about the left cft-jy-ogjub lung ma as well. No effusion. Additionally, somewhat triangular-shaped density about the lung base on the lateral projection. Partial visualization of cervicothoracic fusion hardware. IMPRESSION: 1. Patchy infiltrate at the right mid lung persisting with suggestion of new patchy infiltrates of the left xsd-tt-mysim lung field. Features favor probable patchy areas of pneumonitis. Follow-up imaging until complete resolution is recommended. Possibility of a neoplasm should not be excluded at this time. Dictated by: Dictated on workstation # [id number]
== END ==
LOC: RAD 13:47
PROVIDERS: ATTEND Registered Nurse
DX: J18.9 Pneumonia, unspecified organism (principal); R91.8 Other nonspecific abnormal finding of lung field
CPT/HCPCS: 71046

== ENCOUNTER 2020-02-04 21:36 | Emergency (ER) | payer SELFPAY ==
[~2020-02-04] VITALS: Ht 182.9 cm; Wt 97.5 kg
--- OUTSIDE RECORDS SUMMARY | 2020-02-04 21:43 | XMS REPORT ---
Author Author Aric HATFIELD [facility] Address [address] [place] [address] Care Team Providers Care Vp Publisher Development Name Role Phone BELGICA HATFIELD Unavailable PROBLEMS Unknown Problems ALLERGIES No Information ENCOUNTERS Encounter Location Date Diagnosis [facility] [address] [facility] [id number] [place] [id number] Aug, [facility] [address] [place] [id number] [place] [id number] Aug, Elevated blood sugar R73.9 and Pneumonia J18.9 [facility] [address] [place] [id number] [place], [place] [id number] Aug, Elevated blood sugar R73.9 [facility] [address] [place] [id number] [place] [address] 08 Aug, 2018 S/P cervical spinal fusion Z 98.1 [facility] [address] [address] Aug, [facility] [address] [place] [id number] [address] [place] [address] Aug, Bronchitis J40 [facility] [address] [place] [id number] [place] [address] Aug, [facility] 120 [facility] [id number] [place] [id number] Aug, General medical examination Z00.00 [facility] [address] [place] [place] [id number] [place] [address] Jul, [facility] [address] [facility] [id number] [place] [id number] Jul, Bilateral leg numbness R20.0 ; General m edical examination Z00.00 ; High risk medications (not anticoagulants) long-term use Z79.899 and Elevated BP without diagnosis of hypertension R03.0 [facility] [address] [facility] [id number] [facility] [id number] Jun, [facility] [address] [facility] [id number] [facility] [id number] Jun, Bilateral leg numbness R20.0 and Elevate d BP without diagnosis of hypertension R03.0 IMMUNIZATIONS No Known Immunizations SOCIAL HISTORY Never Assessed REASON FOR VISIT results PLAN OF CARE VITAL SIGNS MEDICATIONS Unknown Medications RESULTS No Results PROCEDURES No Known procedures INSTRUCTIONS MEDICATIONS ADMINISTERED No Known Medications MEDICAL (GENERAL) HISTORY Type Description Date Medical History Cervical Fusion Surgical History Cervical Fusion C6-C7 03/2017 Surgical History rotator cuff tear repair, right shoulder 04/2017 Hospitalization History Surgery(s) only
--- OUTSIDE RECORDS SUMMARY | 2020-02-04 21:43 | XMS REPORT ---
Author Author Aric AGARWAL Organization [facility] Address [address] [place] [address] Care Team Providers Care Shop Supervisor Name Role Phone STEFANOANASTACIOA Unavailable PROBLEMS Unknown Problems ALLERGIES No Known Allergies ENCOUNTERS Encounter Location Date Diagnosis [facility] [address] [place], [place] [address], [place] [id number] Aug, Elevated blood sugar R73.9 and Pneumonia J18.[address] [place] [address], [place] [id number] Aug, Elevated blood sugar R73.9 [facility] [address] [address] Aug, S/P cervical spinal fusion Z 98.1 [facility] [address] [address] Aug, [facility] [address] [address] Aug, Bronchitis J40 [facility] IN [facility] [address] [address] Aug, [address] [place] [address], [place] [id number] Aug, General medical examination Z00.00 [facility] [address] [place] [id number] [address] [place] [address] Jul, [place] [id number] [place] [address], [place] [id number] Jul, Bilateral leg numbness R20.0 ; General m edical examination Z00.00 ; High risk medications (not anticoagulants) long-term use Z79.899 and Elevated BP without diagnosis of hypertension R03.0 [place] [id number] Tammie PRY[place] S [id number] Jun, [facility] [place] [address] [id number] Tammie [place] S [id number] Jun, Bilateral leg numbness R20.0 and Elevate d BP without diagnosis of hypertension R03.0 IMMUNIZATIONS No Known Immunizations SOCIAL HISTORY Never Assessed REASON FOR VISIT chest Congestion and cough x 1 week ago. ASHLY Yo PLAN OF CARE VITAL SIGNS Height 72 in 2018-08-03 Weight 217.2 lbs 2018-08-03 Temperature 99.4 degrees Fahrenheit 2018-08-03 Heart Rate 96 bpm 2018-08-03 Respiratory Rate 20 2018-08-03 BMI 29.45 kg/m2 2018-08-03 Blood pressure systolic 152 mmHg 2018-08-03 Blood pressure diastolic 90 mmHg 2018-08-03 MEDICATIONS Medication Instructions Dosage Frequency Start Date End Date Duration S tatus Hydrocodone-Acetaminophen 5-325 MG Orally every 6 hrs 1 tablet as need ed 6h Not-Taking Ibuprofen 800 MG Orally Three times a day 1 tablet with food or milk as needed 8h Active Flexeril 10 1 tablet 12h Not-Taking RESULTS No Results PROCEDURES No Known procedures INSTRUCTIONS MEDICATIONS ADMINISTERED No Known Medications MEDICAL (GENERAL) HISTORY Type Description Date Medical History Cervical Fusion Surgical History Cervical Fusion C6-C7 03/2017 Surgical History rotator cuff tear repair, right shoulder 04/2017 Hospitalization History Surgery(s) only
--- OUTSIDE RECORDS SUMMARY | 2020-02-04 21:43 | XMS REPORT ---
Author Author Aric HATFIELD [facility] Address [address] [place] [address] Care Team Providers Care Grounds Crew Supervisor Name Role Phone BELGICA HATFIELD Unavailable PROBLEMS Unknown Problems ALLERGIES No Information ENCOUNTERS Encounter Location Date Diagnosis [facility] [id number] [place] [id number] Aug, [facility] [address] [address] Aug, S/P cervical spinal fusion Z 98.1 [facility] [address] [address] Aug, [facility] [address] [address] Aug, Bronchitis J40 [facility] [address] [address] Aug, [facility] [id number] [place] [id number] Aug, General medical examination Z00.00 [facility] [address] [place] [id number] [address] [place] [address] Jul, [facility] [address] [facility] [id number] [place] [id number] Jul, Bilateral leg numbness R20.0 ; General m edical examination Z00.00 ; High risk medications (not anticoagulants) long-term use Z79.899 and Elevated BP without diagnosis of hypertension R03.[address] [facility] [address] [facility] [id number] [place] [id number] Jun, [facility] [address] [facility] [id number] [place], [place] [id number] Jun, Bilateral leg numbness R20.0 and Elevate d BP without diagnosis of hypertension R03.0 IMMUNIZATIONS No Known Immunizations SOCIAL HISTORY Never Assessed REASON FOR VISIT referral PLAN OF CARE VITAL SIGNS MEDICATIONS Unknown Medications RESULTS No Results PROCEDURES No Known procedures INSTRUCTIONS MEDICATIONS ADMINISTERED No Known Medications MEDICAL (GENERAL) HISTORY Type Description Date Medical History Cervical Fusion Surgical History Cervical Fusion C6-C7 03/2017 Surgical History rotator cuff tear repair, right shoulder 04/2017 Hospitalization History Surgery(s) only
--- OUTSIDE RECORDS SUMMARY | 2020-02-04 21:43 | XMS REPORT ---
Author Author Aric JORGE [address] Address [address] [place] [address] Care Team Providers Care Utility Tender Carding Name Role Phone JANES JORGE Unavailable PROBLEMS Type Condition ICD9-CM Code BYS69-TH Code Onset Dates Condition S tatus SNOMED Code Problem Memory loss R41.3 Active 01635569 Problem Depressed F32.9 Active 09278995 Problem Other chronic pain G89.29 Active 8 3536270 Problem Neuropathy of left upper extremity G56.92 Active 003128270 Problem Restless leg syndrome G25.81 Active [id number] ALLERGIES No Information ENCOUNTERS Encounter Location Date Diagnosis [place] [address] [address] Oct, Other chronic pain G89.29 ; Restless leg syndrome G25.81 ; Screening for hyperlipidemia Z13.220 ; Other infective acute otitis externa of left ear H60.392 and Acute non-recurrent maxillary sinusitis J01.00 [place] [address] [address] 12 Oct, 2019 Neuropathy of left upper extremity G56.9 2 ; Restless leg syndrome G25.81 and Other chronic pain G89.29 [place] [address] [address] Sep, Other chronic pain G89.29 [place] [address] [address] Sep, Acute non-recurrent maxillary sinusitis J01.00 and Other infective acute otitis externa of left ear H60.392 [place] [address] [address] Sep, [place] [address] [address] Aug, [facility] [address] [address] Aug, Depressed F32.9 [facility] [address] [address] Jul, Other chronic pain G89.29 [facility] [address] [address] Jul, Other chronic pain G89.29 [facility] [address] [address] Jul, Restless leg syndrome G25.81 ; Neuropath y of left upper extremity G56.92 ; Memory loss R41.3 and Encounter for immunization Z23 [facility] [address] [address] Jun, Neuropathy of left upper extremity G56.[address] [id number] Jun, Other chronic pain G89.29 [facility] [address] [id number] [id number] May, Other chronic pain G89.29 [facility] [address] [address] May, [facility] [address] [address] May, Neuropathy of left upper extremity G56.9 2 [facility] [address] [address] Apr, [address] [id number] Apr, [address] [id number] Apr, Other chronic pain G89.29 ; Neck pain M54.2 ; Pain in right shoulder M25.511 and Pain in left shoulder M25.[address] [id number] Apr, Other chronic pain G89.29 [address] [id number] Apr, [place] [id number] [place] [id number] March, Other chronic pain G89.29 [facility] [address] [id number] [place] [id number] March, Pain in left shoulder M25.512 ; Pain in right shoulder M25.511 and Neck pain M54.[address] [id number] March, Neck pain M54.2 ; Pain in right shoulder M25.511 and Pain in left shoulder M25.[address] [id number] Jan, [address] [id number] Jan, Other chronic pain G89.[address] [id number] Jan, Other chronic pain G89.[address] [id number] Dec, Other chronic pain G89.[address] [id number] Nov, S/P cervical spinal fusion Z98.1 ; Other chronic pain G89.29 and High risk medications (not anticoagulants) long-term use Z79.[address] [id number] Aug, Pneumonia J18.[address] [id number] Aug, [address] [id number] Aug, Elevated blood sugar R73.9 and Pneumonia J18.9 [place] [id number] [place] [id number] Aug, Elevated blood sugar R73.9 [facility] [address] [facility]75[address] [place] [address] Aug, S/P cervical spinal fusion Z98.1 [facility] [address] [facility]75[address] [place] [address] Aug, [facility] [address] [facility] [id number] [address] [place] [address] Aug, Bronchitis J40 [facility] [address] [facility] [id number] [address] [place] [address] Aug, [facility] [address] [facility] [id number] Aug, General medical examination Z00.00 [facility] [address] [facility] [place] [address] Jul, [facility] 120 [facility] [id number] Jul, Bilateral leg numbness R20.0 ; General medical examination Z00.00 ; High risk medications (not anticoagulants) long-term use Z79.899 and Elevated BP without diagnosis of hypertension R03.0 [facility] [address] [facility] [id number] Jun, [place] [id number] [place] [id number] Jun, Bilateral leg numbness R20.0 and Elevated BP without diagnosis of hypertension R03.0 IMMUNIZATIONS No Known Immunizations SOCIAL HISTORY Never Assessed REASON FOR VISIT PLAN OF CARE VITAL SIGNS MEDICATIONS Medication Instructions Dosage Frequency Start Date End Date Duration S tatus Ibuprofen 800 MG Orally Three times a day 1 tablet with food or milk as needed 8h 30 days Active Cyclobenzaprine HCl 5 mg Orally 2 times a day 1 tablet as needed 12 h Dec, 30 days Active Hydrocodone-Acetaminophen 5-325 MG Orally no more than twice a day 0.5-1 tablet as needed Dec, 28 days Active RESULTS No Results PROCEDURES No Known procedures INSTRUCTIONS MEDICATIONS ADMINISTERED No Known Medications MEDICAL (GENERAL) HISTORY Type Description Date Medical History Cervical Fusion Surgical History Cervical Fusion C6-C7 03/2017 Surgical History rotator cuff tear repair, right shoulder 04/2017 Hospitalization History Surgery(s) only
--- OUTSIDE RECORDS SUMMARY | 2020-02-04 21:43 | XMS REPORT ---
Author Author Aric HATFIELD [facility] Address [address] [place] [address] Care Team Providers Care Art Consultant Name Role Phone BELGICA HATFIELD Unavailable PROBLEMS Unknown Problems ALLERGIES No Information ENCOUNTERS Encounter Location Date Diagnosis [facility] [id number] [place] [id number] Aug, Elevated blood sugar R73.9 and Pneumonia J18.9 [facility] [id number] [place] [address], [place] [id number] Aug, Elevated blood sugar R73.9 [facility] [address] [id number] [place] [phone] Aug, S/P cervical spinal fusion Z 98.1 [facility] [address] [id number] [address] [place] [phone] Aug, [facility] [address] [id number] [address] [place] [phone] Aug, Bronchitis J40 [facility] WALK IN [facility] [address] [id number] [address] [place] [phone] Aug, [facility] [id number] [place] [address], [place] [id number] Aug, General medical examination Z00.00 [facility] [address] [facility] [id number] [address] [place] [phone] Jul, [id number] [place] [address], [place] [id number] Jul, Bilateral leg numbness R20.0 ; General m edical examination Z00.00 ; High risk medications (not anticoagulants) long-term use Z79.899 and Elevated BP without diagnosis of hypertension R03.0 [facility] [address] [id number] Tammie PRYOR [id number] Jun, [facility] [address] [facility] [id number] [place] [facility] [id number] Jun, Bilateral leg numbness R20.0 and Elevate d BP without diagnosis of hypertension R03.0 IMMUNIZATIONS No Known Immunizations SOCIAL HISTORY Never Assessed REASON FOR VISIT defer lab PLAN OF CARE VITAL SIGNS MEDICATIONS No Known Medications RESULTS No Results PROCEDURES No Known procedures INSTRUCTIONS MEDICATIONS ADMINISTERED No Known Medications MEDICAL (GENERAL) HISTORY Type Description Date Medical History Cervical Fusion Surgical History Cervical Fusion C6-C7 03/2017 Surgical History rotator cuff tear repair, right shoulder 04/2017 Hospitalization History Surgery(s) only
--- OUTSIDE RECORDS SUMMARY | 2020-02-04 21:43 | XMS REPORT ---
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 Name Role Phone BELGICA HATFIELD Unavailable PROBLEMS Unknown Problems ALLERGIES No Known Allergies ENCOUNTERS Encounter Location Date Diagnosis [facility] [id number] [place] [id number] Aug, [facility] [address] [phone] Aug, S/P cervical spinal fusion Z 98.1 [facility] [address] [phone] Aug, [facility] [address] [id number] [address] [place] [phone] Aug, Bronchitis J40 [facility] WALK IN [facility] [address] [phone] Aug, [facility] [id number] [place] [id number] Aug, General medical examination Z00.00 [facility] [address] [id number] [address] [place] [phone] Jul, [facility] [address] [facility] [id number] [place], [place] [id number] Jul, Bilateral leg numbness R20.0 ; General m edical examination Z00.00 ; High risk medications (not anticoagulants) long-term use Z79.899 and Elevated BP without diagnosis of hypertension R03.0 [facility] [address] [id number] [place] [id number] Jun, [facility] [address] [facility] [id number] [place] [id number] Jun, Bilateral leg numbness R20.0 and Elevate d BP without diagnosis of hypertension R03.0 IMMUNIZATIONS No Known Immunizations SOCIAL HISTORY Never Assessed REASON FOR VISIT Numbness (Leg), states hit his head in June 2018 and now legs are numb, hx of neck surgery and shoulder surgery Gaudencio RN PLAN OF CARE Activity Details Follow Up 3 months or as indicated by lab Reason:CHM VITAL SIGNS Height 72 in 2018-07-27 Weight 217.4 lbs 2018-07-27 Temperature 99.3 degrees Fahrenheit 2018-07-27 Heart Rate 72 bpm 2018-07-27 Respiratory Rate 18 2018-07-27 BMI 29.48 kg/m2 2018-07-27 Blood pressure systolic 120 mmHg 2018-07-27 Blood pressure diastolic 64 mmHg 2018-07-27 MEDICATIONS Medication Instructions Dosage Frequency Start Date End Date Duration S tatus Ibuprofen 800 MG Orally Three times a day 1 tablet with food or milk as needed 8h Active Hydrocodone-Acetaminophen 5-325 MG Orally every 6 hrs 1 tablet as need ed 6h Active Flexeril 10 1 tablet 12h Active RESULTS No Results PROCEDURES No Known procedures INSTRUCTIONS MEDICATIONS ADMINISTERED No Known Medications MEDICAL (GENERAL) HISTORY Type Description Date Medical History Cervical Fusion Surgical History Cervical Fusion C6-C7 03/2017 Surgical History rotator cuff tear repair, right shoulder 04/2017 Hospitalization History Surgery(s) only
--- OUTSIDE RECORDS SUMMARY | 2020-02-04 21:43 | XMS REPORT ---
Author Author Aric DUBOIS Organization [facility] Address [address] [place] [address] Care Team Providers Care Log Chain Feeder Name Role Phone STEPH DUBOIS Unavailable PROBLEMS Unknown Problems ALLERGIES No Known Allergies ENCOUNTERS Encounter Location Date Diagnosis [facility] [id number] [place] [id number] Aug, Elevated blood sugar R73.9 and Pneumonia J18.9 [id number] [place] [address], [place] [id number] Aug, Elevated blood sugar R73.9 [facility] [address] [phone] Aug, S/P cervical spinal fusion Z 98.1 [facility] [address] [id number] [address] [place] [phone] Aug, [facility] [address] [phone] Aug, [facility] [address] [id number] [address] [place] [phone] Aug, Bronchitis J40 [address] [place] [address], [place] [id number] Aug, General medical examination Z00.00 [facility] [address] [facility] [id number] [address] [place] [phone] Jul, [id number] [place] [address], [place] [id number] Jul, Bilateral leg numbness R20.0 ; General m edical examination Z00.00 ; High risk medications (not anticoagulants) long-term use Z79.899 and Elevated BP without diagnosis of hypertension R03.[address] [id number] Tammie PRYOR S [id number] Jun, HERLINDA PRYOR [address] [id number] Tammie PRYOR S [id number] Jun, Bilateral leg numbness R20.0 and Elevate d BP without diagnosis of hypertension R03.0 IMMUNIZATIONS No Known Immunizations SOCIAL HISTORY Never Assessed REASON FOR VISIT Pain management (chronic) marcela mejia PLAN OF CARE Activity Details Follow Up with PCP Reason: VITAL SIGNS Height 72 in 2018-08-09 Weight 213.8 lbs 2018-08-09 Temperature 97.2 degrees Fahrenheit 2018-08-09 Heart Rate 96 bpm 2018-08-09 Respiratory Rate 22 2018-08-09 BMI 28.99 kg/m2 2018-08-09 Blood pressure systolic 126 mmHg 2018-08-09 Blood pressure diastolic 78 mmHg 2018-08-09 MEDICATIONS Medication Instructions Dosage Frequency Start Date End Date Duration S tatus ProAir HFA 108 (90 Base) MCG/ACT Inhalation every 6 hrs 2 puffs as needed 6h Aug, 10 days Active Ibuprofen 800 MG Orally Three times a day 1 tablet with food or milk as needed 8h Active Flexeril 10 1 tablet 12h Active Tylenol with Codeine #3 300-30 MG Orally every 6 hrs 1 tablet as neede d 6h Active Tessalon Perles 100 MG Orally Three times a day 1 capsule as needed 8h Active Hydrocodone-Acetaminophen 5-325 MG Orally every 6 hrs 1 tablet as need ed 6h Not-Taking Hydrocodone-Acetaminophen 5-325 MG Orally no more than twice a day 0.5-1 tablet as needed Aug, Active RESULTS No Results PROCEDURES No Known procedures INSTRUCTIONS MEDICATIONS ADMINISTERED No Known Medications MEDICAL (GENERAL) HISTORY Type Description Date Medical History Cervical Fusion Surgical History Cervical Fusion C6-C7 03/2017 Surgical History rotator cuff tear repair, right shoulder 04/2017 Hospitalization History Surgery(s) only
--- OUTSIDE RECORDS SUMMARY | 2020-02-04 21:44 | XMS REPORT | Continuity of Care Document ---
Author Organization Unknown Address Unknown Phone Unavailable Allergies There is no data. Medications There is no data. Problems There is no data. Procedures There is no data. Results Test Result Range CBC - 08/03/18 08:09 WHITE BLOOD CELL COUNT 8.1 Thousand/uL 3 .8-10.8 RED BLOOD CELL COUNT 5.07 Million/uL 4.2 0-5.80 HEMOGLOBIN 14.8 g/dL 13.2-17.1 HEMATOCRIT 43.9 % 38.5-50.0 MCV 86.6 fL 80.0-100.0 MCH 29.2 pg 27.0-33.0 MCHC 33.7 g/dL 32.0-36.0 RDW 13.0 % 11.0-15.0 PLATELET COUNT 258 Thousand/uL 140-400 MPV 9.0 fL 7.5-12.5 ABSOLUTE NEUTROPHILS 6002 cells/uL 1500- 7800 ABSOLUTE LYMPHOCYTES 1126 cells/uL 850-3 900 ABSOLUTE MONOCYTES 664 cells/uL 200-950 ABSOLUTE EOSINOPHILS 251 cells/uL 15-500 ABSOLUTE BASOPHILS 57 cells/uL 0-200 NEUTROPHILS 74.1 % NRG LYMPHOCYTES 13.9 % NRG MONOCYTES 8.2 % NRG EOSINOPHILS 3.1 % NRG BASOPHILS 0.7 % NRG CBC - 08/11/18 13:15 WHITE BLOOD CELL COUNT 7.4 Thousand/uL 3 .8-10.8 RED BLOOD CELL COUNT 4.96 Million/uL 4.2 0-5.80 HEMOGLOBIN 14.7 g/dL 13.2-17.1 HEMATOCRIT 42.9 % 38.5-50.0 MCV 86.5 fL 80.0-100.0 MCH 29.6 pg 27.0-33.0 MCHC 34.3 g/dL 32.0-36.0 RDW 13.2 % 11.0-15.0 PLATELET COUNT 331 Thousand/uL 140-400 MPV 8.8 fL 7.5-12.5 ABSOLUTE NEUTROPHILS 4588 cells/uL 1500- 7800 ABSOLUTE LYMPHOCYTES 1783 cells/uL 850-3 900 ABSOLUTE MONOCYTES 577 cells/uL 200-950 ABSOLUTE EOSINOPHILS 400 cells/uL 15-500 ABSOLUTE BASOPHILS 52 cells/uL 0-200 NEUTROPHILS 62 % NRG LYMPHOCYTES 24.1 % NRG MONOCYTES 7.8 % NRG EOSINOPHILS 5.4 % NRG BASOPHILS 0.7 % NRG CMP - 07/25/19 12:10 GLUCOSE 75 mg/dL 65-99 UREA NITROGEN (BUN) 9 mg/dL 7-25 CREATININE 0.90 mg/dL 0.60-1.35 eGFR NON-AFR. UZBEK 100 mL/min/1.73m2 > OR = 60 eGFR 116 mL/min/1.73m2 > OR = 60 BUN/CREATININE RATIO NOT APPLICABLE (calc) 6-22 SODIUM 142 mmol/L 135-146 POTASSIUM 4.5 mmol/L 3.5-5.3 CHLORIDE 105 mmol/L 98-110 CARBON DIOXIDE 30 mmol/L 20-32 CALCIUM 9.4 mg/dL 8.6-10.3 PROTEIN, TOTAL 7.0 g/dL 6.1-8.1 ALBUMIN 4.1 g/dL 3.6-5.1 GLOBULIN 2.9 g/dL (calc) 1.9-3.7 ALBUMIN/GLOBULIN RATIO 1.4 (calc) 1.0-2. 5 BILIRUBIN, TOTAL 0.4 mg/dL 0.2-1.2 ALKALINE PHOSPHATASE 67 U/L 40-115 AST 15 U/L 10-40 ALT 15 U/L 9-46 CBC - 07/25/19 12:10 WHITE BLOOD CELL COUNT 5.9 Thousand/uL 3 .8-10.8 RED BLOOD CELL COUNT 5.30 Million/uL 4.2 0-5.80 HEMOGLOBIN 15.3 g/dL 13.2-17.1 HEMATOCRIT 46.9 % 38.5-50.0 MCV 88.5 fL 80.0-100.0 MCH 28.9 pg 27.0-33.0 MCHC 32.6 g/dL 32.0-36.0 RDW 13.1 % 11.0-15.0 PLATELET COUNT 268 Thousand/uL 140-400 MPV 9.0 fL 7.5-12.5 ABSOLUTE NEUTROPHILS 3428 cells/uL 1500- 7800 ABSOLUTE LYMPHOCYTES 1800 cells/uL 850-3 900 ABSOLUTE MONOCYTES 401 cells/uL 200-950 ABSOLUTE EOSINOPHILS 218 cells/uL 15-500 ABSOLUTE BASOPHILS 53 cells/uL 0-200 NEUTROPHILS 58.1 % NRG LYMPHOCYTES 30.5 % NRG MONOCYTES 6.8 % NRG EOSINOPHILS 3.7 % NRG BASOPHILS 0.9 % NRG TSH - 07/25/19 12:10 TSH 0.62 mIU/L 0.40-4.50 VITAMIN B12/FOLATE, SERUM PANEL - 12:10 VITAMIN B12 458 pg/mL 200-1100 FOLATE, SERUM 9.2 ng/mL NRG Encounters ACCT No. Visit Date/Time Discharge Status Pt. Type Provider Facility Loc./Unit Complaint [id number] 12/29/2019 13:00:00 12/29/2019 23:59: 59 [facility] Outpatient SANIYA MARTIN, STEPH Nath [facility] LOUVIERS [id number] 07/25/2019 11:00:00 Document Registration [id number] 08/11/2018 11:20:00 Document Registration [id number] 08/03/2018 08:00:00 Document Registration
--- OUTSIDE RECORDS SUMMARY | 2020-02-04 21:44 | XMS REPORT ---
Author Author Aric HATFIELD [facility] Address [address] [place] [address] Care Team Providers Care Machine Grinder Name Role Phone BELGICA HATFIEDL Unavailable PROBLEMS Unknown Problems ALLERGIES No Information ENCOUNTERS Encounter Location Date Diagnosis [facility] [id number] [place] [id number] Aug, [facility] [address] [phone] Aug, S/P cervical spinal fusion Z 98.1 [facility] [address] [phone] Aug, [facility] [address] [phone] Aug, [facility]chitis J40 [facility] [address] [phone] Aug, [facility] [id number] [place], [place] [id number] Aug, General medical examination Z00.00 [facility] [address] [id number] [address] [place] [phone] Jul, [facility] [address] [facility] [id number] [place] [id number] Jul, Bilateral leg numbness R20.0 ; General m edical examination Z00.00 ; High risk medications (not anticoagulants) long-term use Z79.899 and Elevated BP without diagnosis of hypertension R03.0 [facility] [address] [facility] [id number] [place], [place] [phone] Jun, [facility] [address] [facility] [id number] [place], [place] [id number] Jun, Bilateral leg numbness R20.0 and Elevate d BP without diagnosis of hypertension R03.0 IMMUNIZATIONS No Known Immunizations SOCIAL HISTORY Never Assessed REASON FOR VISIT Lab work Gaudencio GAXIOLA PLAN OF CARE Activity Details Pending Test LIPID PANEL Pending Test CMP Pending Test CBC VITAL SIGNS MEDICATIONS Unknown Medications RESULTS No Results PROCEDURES Procedure Date Ordered Result Body Site LIPID PANEL Aug 03, 2018 COMPREHEN METABOLIC PANEL Aug 03, 2018 VENIPUNCT, ROUTINE* Aug 03, 2018 COMPLETE CBC W/AUTO DIFF WBC Aug 03, 2018 INSTRUCTIONS MEDICATIONS ADMINISTERED No Known Medications MEDICAL (GENERAL) HISTORY Type Description Date Medical History Cervical Fusion Surgical History Cervical Fusion C6-C7 03/2017 Surgical History rotator cuff tear repair, right shoulder 04/2017 Hospitalization History Surgery(s) only
--- NOTE | 2020-02-04 22:21 | ED Respiratory ---
General Chief Complaint: Respiratory Problems Stated Complaint: SOB, COUGH Source: patient Exam Limitations: no limitations History of Present Illness Date Seen by Provider: Feb 04, 2020 Time Seen by Provider: 22:00 Initial Comments Here with report of persistent cough and shortness of breath over the last month. States he had influenza be at the end of December and since then he has had persistent but worsening cough. He is a nonsmoker. He does use albuterol i nhaler and states that helps but it does not last very long. He is also been using cough drops with some success although has to use those continuously. Denies nausea, vomiting, diarrhea. Denies other symptoms including fever. Denies sick contacts or contacts in the community. Timing/Duration: getting worse, other (5 weeks) Severity: moderate Prior Episodes/Possible Cause: occasional episodes Modifying Factors: Improves With Albuterol Inhaler Associated Symptoms: No chest pain/soreness; cough; No fever/chills, No muscle aches; shortness of breath; No sore throat; wheezing Allergies and Home Medications Allergies Coded Allergies: No Known Drug Allergies (Unverified , 12/31/17) Home Medications Acetaminophen with Codeine 1 Each Tablet, 1 EACH PO Q4H PRN for COUGH Prescribed by: MAKSIM MENEZES on 08/05/182034 Amoxicillin/Potassium Clav 1 Each Tablet, 1 EACH PO BID Prescribed by: MAKSIM MENEZES on 08/05/182124 Benzonatate 100 Mg Capsule, 200 MG PO TID Prescribed by: MAKSIM MENEZES on 08/05/182034 Patient Home Medication List Home Medication List Reviewed: Yes Review of Systems Review of Systems Constitutional: see HPI; No chills, No fever EENTM: no symptoms reported Respiratory: see HPI, cough, wheezing Cardiovascular: No chest pain, No edema Gastrointestinal: No abdominal pain, No nausea, No vomiting Musculoskeletal: no symptoms reported Psychiatric/Neurological: No Symptoms Reported Past Lqlchmd-Pottjv-Iuiews Hx Past Med/Social Hx: Reviewed Nursing Past Med/Soc Hx Patient Social History Alcohol Use: Occasionally Uses Recreational Drug Use: No Type Used: Smokeless Tobacco 2nd Hand Smoke Exposure: No Recent Hopitalizations: No Immunizations Up To Date Tetanus Booster (TDap): Unknown Seasonal Allergies Seasonal Allergies: No Past Medical History Surgeries: Yes (C6-C7 fusion, right shoulder repair) Orthopedic Respiratory: No Cardiac: Yes Heart Attack Neurological: No Genitourinary: No Gastrointestinal: No Musculoskeletal: Yes (CHRONIC NECK, BACK AND SHOULDER PAIN ) Chronic Back Pain Endocrine: No HEENT: No Cancer: No Psychosocial: No Integumentary: No Blood Disorders: No Family Medical History Reviewed Nursing Family Hx Physical Exam Vital Signs - First Documented 02/04/20 21:45 Temp 36.8 Pulse 89 Resp 18 B/P (MAP) 129/98 (108) Pulse Ox 95 O2 Delivery Room Air Capillary Refill : Height: 6'0" Weight: 220lbs. oz. 99.326229ni; BMI Method:Stated General Appearance: WD/WN, no apparent distress HEENT: PERRL/EOMI, TMs normal, pharyngeal erythema Neck: full range of motion, supple Respiratory: no accessory muscle use, wheezing (Trace throughout), other (Coarse breath sounds with cough) Cardiovascular: regular rate, rhythm, no murmur Gastrointestinal: non tender, soft Neurologic/Psychiatric: alert, oriented x 3 Skin: normal color, warm/dry Progress/Results/Core Measures Suspected Sepsis SIRS Temperature: Pulse: Respiratory Rate: Blood Pressure / Mean: Results/Orders My Orders Orders - JUSTIN TENA MD Chest 1 View, Ap/Pa Only (02/04/20 22:02) Prednisone Tablet (Deltasone Tablet) (02/04/20 22:45) Azithromycin Tablet (Zithromax Tablet) (02/04/20 22:33) Vital Signs/I&O 02/04/20 21:45 Temp 36.8 Pulse 89 Resp 18 B/P (MAP) 129/98 (108) Pulse Ox 95 O2 Delivery Room Air Capillary Refill : Progress Note : Progress Note Seen and evaluated. Low risk for COVID-19. Appears to be persistent cough since influenza infection. We will check chest x-ray. Monitor patient. 2237: Chest x- ray does not show any acute infiltrate. We will initiate prednisone 40 mg now and continue daily. We will also give azithromycin 500 mg by mouth now. Discharged home with return precautions. Patient verbalize understanding instructions and agreement with plan. Diagnostic Imaging Diagonstic Imaging: Xray Plain Films/CT/US/NM/MRI: chest Comments No acute infiltrate or findings Reviewed: Reviewed by Me Departure Impression Primary Impression: Bronchitis, acute Qualified Codes: J20.9 - Acute bronchitis, unspecified Disposition: 01 HOME, SELF-CARE Condition: Improved Departure-Patient Inst. Decision time for Depature: 22:40 Referrals: [facility] ([place]P) Primary Care Physician HOLLY DUBOIS MD (Family) Primary Care Physician Patient Instructions: Acute Bronchitis, Adult (DC) Add. Discharge Instructions: All discharge instructions reviewed with patient and/or family. Voiced understanding. Take medications as directed. Follow-up with your Dr. in a few days for recheck. Return for worse pain, fever, vomiting, weakness, breathing problems or other concerns as needed. You were given her first dose of medicine now. Take your next dose of medicine at noon tomorrow and then first thing in the morning on subsequent days. Continue other medications as previously prescribed. You may take Tylenol and/or ibuprofen as needed for fever or pain per package directions if tolerated. Scripts Prednisone (Prednisone) 20 Mg Tab 40 MG PO DAILY, #12 TAB 0 Refills Prov: JUSTIN TENA MD 02/04/20 Azithromycin (Azithromycin) 250 Mg Tablet 250 MG PO DAILY, #4 TAB 0 Refills Prov: JUSTIN TENA MD 02/04/20 JUSTIN TENA MD Feb 04, 2020 22:21
[2020-02-04] MEDS ORDERED: predniSONE 20 MG TAB ONE (22:31)
[2020-02-04] MEDS ORDERED: AZITHROMYCIN 250 MG TAB (ZITHROMAX) PO STA (22:33)
[2020-02-04] MEDS ORDERED: AZIT250T12 PO (22:42)
[2020-02-04] MEDS ORDERED: PRD20T PO (22:42)
[2020-02-04] MEDS ORDERED: predniSONE 20 MG TAB PO ONE (22:45)
[2020-02-04 22:47] VITALS: BP 138/88
--- NOTE | 2020-02-05 05:11 | Diagnostic Imaging Report ---
INDICATION: Dyspnea AP view of the chest is obtained with comparison made to study of 08/12/2018. FINDINGS: Heart size and pulmonary vascularity are within normal limits, and the lungs are clear, bilaterally. IMPRESSION: Unremarkable chest. Dictated by: Dictated on workstation # [id number]
== END 2020-02-04 22:47 | disposition home or self-care (01) ==
LOC: EDUNIT# 21:36 → ER 21:38
DX: J02.9 Acute pharyngitis, unspecified (principal); I25.2 Old myocardial infarction
CPT/HCPCS: 71045

== ENCOUNTER 2020-03-17 23:44 | Observation (INO) | payer SELFPAY ==
[~2020-03-17] VITALS: Ht 182 cm; Wt 99.3 kg
[~2020-03-17 23:44] MED LIST changes: +AZIT250T12 PO
--- OUTSIDE RECORDS SUMMARY | 2020-03-17 23:50 | XMS REPORT | Continuity of Care Document ---
Author Organization Unknown Address Unknown Phone Unavailable Allergies Active Description Code Type Severity Reaction Onset Reported/Identified Relationship to Patient Clinical Status Yes No Known Drug Allergies [id number] Drug Allergy Unknown N/A 12/31/2017 Medications There is no data. Problems Date Dx Coded Attending Type Code Diagnosis Diagnosed By 12/31/2017 MARCELLO FARRELL MD Ot I25.2 OLD MYOCARDIAL INFARCTION 12/31/2017 MARCELLO FARRELL MD Ot J20.9 ACUTE BRONCHITIS, UNSPECIFIED 12/31/2017 MARCELLO FARRELL MD Ot R05 COUGH 12/31/2017 MARCELLO FARRELL MD Ot R07.81 PLEURODYNIA 12/31/2017 MARCELLO FARRELL MD T Ot Z79.52 SENIOR LIVING (CURRENT) USE OF SYSTEMIC STER 12/31/2017 MARCELLO FARRELL MD T Ot Z98.1 ARTHRODESIS STATUS 01/04/2018 MARCELLO FARRELL MD Ot I25.2 OLD MYOCARDIAL INFARCTION 01/04/2018 MARCELLO FARRELL MD T Ot J20.9 ACUTE BRONCHITIS, UNSPECIFIED 01/04/2018 MARCELLO FARRELL MD T Ot R05 COUGH 01/04/2018 MARCELLO FARRELL MD T Ot R07.81 PLEURODYNIA 01/04/2018 MARCELLO FARRELL MD T Ot 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 01/04/2018 MARCELLO FARRELL MD T Ot Z98.1 ARTHRODESIS STATUS 06/20/2018 TRACI COOPER DO Ot F17.210 NICOTINE DEPENDENCE, CIGARETTES, UNCOMPL 06/20/2018 TRACI COOPER DO Ot I25.2 OLD MYOCARDIAL INFARCTION 06/20/2018 TRACI COOPER DO Ot S09.90X A UNSPECIFIED INJURY OF HEAD, INITIAL ENCO 06/20/2018 TRACI COOPER DO K Ot S16.1XX A STRAIN OF MUSCLE, FASCIA AND TENDON AT N 06/20/2018 [facility] S29.012 A STRAIN OF MUSCLE AND TENDON OF BACK WALL 06/20/2018 [facility] Ot S39.012 A STRAIN OF MUSCLE, FASCIA AND TENDON OF L 06/20/2018 [facility] Ot W22.09X A STRIKING AGAINST OTHER STATIONARY OBJECT 06/20/2018 [facility] Ot Z98.1 ARTHRODESIS STATUS 2018 [facility] Ot F17.210 NICOTINE DEPENDENCE, CIGARETTES, UNCOMPL 2018 [facility] Ot I25.2 OLD MYOCARDIAL INFARCTION 2018 [facility] Ot S09.90X A UNSPECIFIED INJURY OF HEAD, INITIAL ENCO 2018 [facility] TRACI RITCHIE Ot S16.1XX A STRAIN OF MUSCLE, FASCIA AND TENDON AT N 2018 [facility] Ot S29.012 A STRAIN OF MUSCLE AND TENDON OF BACK WALL 2018 [facility], TRACI K Ot S39.012 A STRAIN OF MUSCLE, FASCIA AND TENDON OF L 2018 [facility] Ot W22.09X A STRIKING AGAINST OTHER STATIONARY OBJECT 2018 [facility] DOTRACI Ot Z98.1 ARTHRODESIS STATUS 08/05/2018 MAKSIM MENEZES APRN Ot I25 .2 OLD MYOCARDIAL INFARCTION 08/05/2018 MAKSIM MENEZES APRN Ot J18 .9 PNEUMONIA, UNSPECIFIED ORGANISM 08/05/2018 MAKSIM MENEZES APRN Ot R10.32 LEFT LOWER QUADRANT PAIN 08/05/2018 MAKSIM MENEZES APRN Ot S39.011A STRAIN OF MUSCLE, FASCIA AND TENDON OF A 08/05/2018 MAKSIM MENEZES APRN Ot X58.XXXA EXPOSURE TO OTHER SPECIFIED FACTORS, INI 08/05/2018 MAKSIM MENEZES APRN Ot Z98 .1 ARTHRODESIS STATUS 08/09/2018 MAKSIM MENEZES APRN Ot I25 .2 OLD MYOCARDIAL INFARCTION 08/09/2018 MAKSIM MENEZES APRN Ot J18 .9 PNEUMONIA, UNSPECIFIED ORGANISM 08/09/2018 MENEZES, PETER J LIBRARY TECHNOLOGY INSTRUCTOR Ot R10.32 LEFT LOWER QUADRANT PAIN 08/09/2018 MENEZES, MAKSIM Carson LIBRARY TECHNOLOGY INSTRUCTOR Ot S39.011A STRAIN OF MUSCLE, FASCIA AND TENDON OF A 08/09/2018 CLIF MAKSIM Carson LIBRARY TECHNOLOGY INSTRUCTOR Ot X58.XXXA EXPOSURE TO OTHER SPECIFIED FACTORS, INI 08/09/2018 MENEZES, MAKSIM Carson LIBRARY TECHNOLOGY INSTRUCTOR Ot Z98 .1 ARTHRODESIS STATUS 08/13/2018 HATFIELDBELGICA LIBRARY TECHNOLOGY INSTRUCTOR Ot J18 .9 PNEUMONIA, UNSPECIFIED ORGANISM 08/13/2018 HATFIELDBELGICA LIBRARY TECHNOLOGY INSTRUCTOR Ot R91 .8 OTHER NONSPECIFIC ABNORMAL FINDING OF KEV 12/03/2018 CLIFMAKSIM LIBRARY TECHNOLOGY INSTRUCTOR Ot I25 .2 OLD MYOCARDIAL INFARCTION 12/03/2018 MENEZESMAKSIM LIBRARY TECHNOLOGY INSTRUCTOR Ot J18 .9 PNEUMONIA, UNSPECIFIED ORGANISM 12/03/2018 CLIF MAKSIM Carson LIBRARY TECHNOLOGY INSTRUCTOR Ot R10.32 LEFT LOWER QUADRANT PAIN 12/03/2018 MENEZESMAKSIM LIBRARY TECHNOLOGY INSTRUCTOR Ot S39.011A STRAIN OF MUSCLE, FASCIA AND TENDON OF A 12/03/2018 MENEZESMAKSIM LIBRARY TECHNOLOGY INSTRUCTOR Ot X58.XXXA EXPOSURE TO OTHER SPECIFIED FACTORS, INI 12/03/2018 MENEZES, MAKSIM Carson LIBRARY TECHNOLOGY INSTRUCTOR Ot Z98 .1 ARTHRODESIS STATUS 02/04/2020 BELGICA HATFIELD LIBRARY TECHNOLOGY INSTRUCTOR Ot J18 .9 PNEUMONIA, UNSPECIFIED ORGANISM 02/04/2020 BELGICA HATFIELD LIBRARY TECHNOLOGY INSTRUCTOR Ot R91 .8 OTHER NONSPECIFIC ABNORMAL FINDING OF KEV 02/06/2020 JUSTIN TENA MD Ot I25.2 OLD MYOCARDIAL INFARCTION 02/06/2020 JUSTIN TENA MD Ot J02.9 ACUTE PHARYNGITIS, UNSPECIFIED 02/06/2020 JUSTIN TENA MD Ot R05 COUGH 02/10/2020 JUSTIN TENA MD Ot I25.2 OLD MYOCARDIAL INFARCTION 02/10/2020 JUSTIN TENA MD Ot J02.9 ACUTE PHARYNGITIS, UNSPECIFIED 02/10/2020 JUSTIN TENA MD Ot R05 COUGH Procedures There is no data. Results Test [...] 3.1 % NRG BASOPHILS 0.7 % NRG Complete blood count (CBC) with automate d white blood cell (WBC) differential - 08/05/18 20:00 Blood leukocytes automated count (number/volume) 9.3 10*3/uL 4.3-11.0 Blood erythrocytes automated count (number/volume) 4.45 10*6/uL 4.35-5.85 Venous blood hemoglobin measurement (mass/volume) 13.4 g/dL 13.3-17.7 Blood hematocrit (volume fraction) 38 % 40-54 Automated erythrocyte mean corpuscular volume 85 [ foz_us] 80-99 Automated erythrocyte mean corpuscular h emoglobin (mass per erythrocyte) 30 pg 25-34 Automated erythrocyte mean corpuscular h emoglobin concentration measurement (mass/volume) 36 g/dL 32-36 Automated erythrocyte distribution width ratio 12. 8 % 10.0- 14.5 Automated blood platelet count (count/volume) 309 10*3/uL 130-400 Automated blood platelet mean volume measurement 8.8 [foz_us] 7.4-10.4 Automated blood neutrophils/100 leukocytes 62 % 42-75 Automated blood lymphocytes/100 leukocytes 29 % 12-44 Blood monocytes/100 leukocytes 8 % 0-12 Automated blood eosinophils/100 leukocytes 1 % 0-10 Automated blood basophils/100 leukocytes 0 % 0-10 Blood neutrophils automated count (number/volume) 5.8 10*3 1.8-7.8 Blood lymphocytes automated count (number/volume) 2.7 10*3 1.0-4.0 Blood monocytes automated count (number/volume) 0. 7 10*3 0.0-1.0 Automated eosinophil count 0.1 10*3/uL 0 .0-0.3 Automated blood basophil count (count/volume) 0.0 10*3/uL 0.0-0.1 Comprehensive metabolic panel - 08/05/18 20:00 Serum or plasma sodium measurement (moles/volume) 140 mmol/L 135-145 Serum or plasma potassium measurement (moles/volume) 3.6 mmol/L 3.6-5.0 Serum or plasma chloride measurement (moles/volume) 107 mmol/L 98-107 Carbon dioxide 23 mmol/L 21-32 Serum or plasma anion gap determination (moles/volume) 10 mmol/L 5-14 Serum or plasma urea nitrogen measurement (mass/volume ) 21 mg/dL 7-18 Serum or plasma creatinine measurement (mass/volume) 0.86 mg/dL 0.60-1.30 Serum or plasma urea nitrogen/creatinine mass ratio 24 NRG Serum or plasma creatinine measurement w ith calculation of estimated glomerular filtration rate > NRG Serum or plasma glucose measurement (mass/volume) 117 mg/dL 70-105 Serum or plasma calcium measurement (mass/volume) 8.9 mg/dL 8.5-10.1 Serum or plasma total bilirubin measurement (mass/volu me) 0.2 mg/dL 0.1-1.0 Serum or plasma alkaline phosphatase andrés surement (enzymatic activity/volume) 52 U/L 40-136 Serum or plasma aspartate aminotransfera se measurement (enzymatic activity/volume) 26 U/L 5-34 Serum or plasma alanine aminotransferase measurement (enzymatic activity/volume) 30 U/L 0-55 Serum or plasma protein measurement (mass/volume) 7.0 g/dL 6.4-8.2 Serum or plasma albumin measurement (mass/volume) 3.7 g/dL 3.2-4.5 CALCIUM CORRECTED 9.1 mg/dL 8.5-10.1 CBC - 08/11/18 13:15 WHITE BLOOD CELL [...] 7-25 CREATININE 0.90 mg/dL 0.60-1.35 eGFR NON-AFR. [place] 100 mL/min/1.73m2 > OR = 60 eGFR [...] Status Pt. Type Provider Facility Loc./Unit Complaint [id number] 12/29/2019 13:00:00 12/29/2019 23:59: 59 CLS Outpatient SANIYA [facility]ARTIN[facility] [id number] 07/25/2019 11:00:00 Document Registration [id number] 08/11/2018 11:20:00 Document Registration [id number] 08/03/2018 08:00:00 Document Registration [id number] 02/04/2020 21:38:00 22:47:00 DIS Outpatient JUSTIN TENA MD [facility] ER SOB, COUGH [id number] 08/12/2018 13:47:00 23:59:59 CLS Outpatient BELGICA HATFIELD LIBRARY TECHNOLOGY INSTRUCTOR [facility] RAD J18.9 [id number] 08/05/2018 19:37:00 22:01:00 DIS Emergency MAKSIM MENEZES LIBRARY TECHNOLOGY INSTRUCTOR [facility] ER COUGH,SIDE PAIN WHEN CO UGHING,SOB [id number] 06/20/2018 19:45:00 21:45:00 DIS Emergency TRACI COOPER DO [facility] ER FALL [id number] 12/31/2017 09:03:00 018 11:03:00 DIS Emergency JAMI MARTIN, MARCELLO Goel [facility] ER COUGH,CHEST DISCOMFORT,WHEEZING
[2020-03-17] MEDS ORDERED: NS IV 1000 ML 1,000 ML IV ONE (23:53)
[2020-03-18] VITALS (15 sets, daily range): BP systolic 94–132; BP diastolic 70–92
[2020-03-18 00:02] LABS: BASOPHILS % (AUTO) 0 % (0-10); EOSINOPHILS # (AUTO) 0.4 10^3/uL (0.0-0.3); EOSINOPHILS % (AUTO) 5 % (0-10); HEMATOCRIT 44 % (40-54); HEMOGLOBIN 15.4 G/DL (13.3-17.7); LYMPHOCYTES # (AUTO) 2.9 X 10^3 (1.0-4.0); LYMPHOCYTES % (AUTO) 33 % (12-44); MEAN CORPUSCULAR HEMOGLOBIN 29 PG (25-34); MEAN CORPUSCULAR HGB CONC 35 G/DL (32-36); MEAN CORPUSCULAR VOLUME 84 FL (80-99); MEAN PLATELET VOLUME 9.1 FL (7.4-10.4); MONOCYTES # (AUTO) 0.7 X 10^3 (0.0-1.0); MONOCYTES % (AUTO) 8 % (0-12); NEUTROPHILS # (AUTO) 4.8 X 10^3 (1.8-7.8); NEUTROPHILS % (AUTO) 54 % (42-75); PLATELET COUNT 242 10^3/uL (130-400); RED CELL DISTRIBUTION WIDTH 12.9 % (10.0-14.5); WHITE BLOOD COUNT 8.8 10^3/uL (4.3-11.0)
[2020-03-18] MEDS: NITROGLYCERIN 0.4 MG SL TABS BTL 25'S SL PRN ×3 (00:06→00:21)
[2020-03-18 00:16] LABS: ALBUMIN 4.3 GM/DL (3.2-4.5); CHLORIDE 104 MMOL/L (98-107); POTASSIUM 3.6 MMOL/L (3.6-5.0); SODIUM 140 MMOL/L (135-145)
[2020-03-18 00:17] LABS: CALCIUM 9.1 MG/DL (8.5-10.1)
[2020-03-18 00:18] LABS: GLUCOSE 101 MG/DL (70-105); TOTAL PROTEIN 7.5 GM/DL (6.4-8.2)
[2020-03-18 00:19] LABS: CARBON DIOXIDE 25 MMOL/L (21-32)
[2020-03-18 00:20] LABS: BILIRUBIN,TOTAL 0.4 MG/DL (0.1-1.0)
[2020-03-18 00:22] LABS: ALKALINE PHOSPHATASE 63 U/L (40-136); CREATININE SERUM 1.14 MG/DL (0.60-1.30); GFR ESTIMATED > 60
[2020-03-18 00:23] LABS: BUN/CREATININE RATIO 11
[2020-03-18 00:24] LABS: MAGNESIUM 2.3 MG/DL (1.6-2.4)
[2020-03-18 00:25] LABS: ALANINE AMINOTRANSFERASE 20 U/L (0-55); CREATINE KINASE 67 U/L (30-200)
[2020-03-18 00:44] LABS: PROTHROMBIN TIME PATIENT 13.6 SEC (12.2-14.7)
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
--- OUTSIDE RECORDS SUMMARY | 2020-03-18 02:04 | XMS REPORT | Continuity of Care Document ---
Author Organization Unknown Address Unknown Phone Unavailable Allergies Active Description Code Type Severity Reaction Onset Reported/Identified Relationship to Patient Clinical Status Yes No Known Drug Allergies [id number] Drug Allergy Unknown N/A 12/31/2017 Medications There is no data. Problems Date Dx Coded Attending Type Code Diagnosis Diagnosed By 12/31/2017 MARCELLO FARRELL MD Ot I25.2 OLD MYOCARDIAL INFARCTION 12/31/2017 MARCELLO FARRELL MD Ot J20.9 ACUTE BRONCHITIS, UNSPECIFIED 12/31/2017 MARCELLO FARRELL MD Ot R05 COUGH 12/31/2017 MARCELLO FARRELL MD Ot R07.81 PLEURODYNIA 12/31/2017 MARCELLO FARRELL MD T Ot Z79.52 [facility]CC (CURRENT) USE OF SYSTEMIC STER 12/31/2017 MARCELLO FARRELL MD T Ot Z98.1 ARTHRODESIS STATUS 01/04/2018 MARCELLO FARRELL MD Ot I25.2 OLD MYOCARDIAL INFARCTION 01/04/2018 MARCELLO FARRELL MD T Ot J20.9 ACUTE BRONCHITIS, UNSPECIFIED 01/04/2018 MARCELLO FARRELL MD T Ot R05 COUGH 01/04/2018 MARCELLO FARRELL MD T Ot R07.81 PLEURODYNIA 01/04/2018 MARCELLO FARRELL MD T Ot 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 01/04/2018 MARCELLO FARRELL MD T Ot Z98.1 ARTHRODESIS STATUS 06/20/2018 TRACI COOPER DO Ot F17.210 NICOTINE DEPENDENCE, CIGARETTES, UNCOMPL 06/20/2018 TRACI COOPER DO Ot I25.2 OLD MYOCARDIAL INFARCTION 06/20/2018 TRACI COOPER DO Ot S09.90X A UNSPECIFIED INJURY OF HEAD, INITIAL ENCO 06/20/2018 TRACI COOPER DO Ot S16.1XX A STRAIN OF MUSCLE, FASCIA AND TENDON AT N 06/20/2018 [facility] S29.012 A STRAIN OF MUSCLE AND TENDON OF BACK WALL 06/20/2018 [facility] Ot S39.012 A STRAIN OF MUSCLE, FASCIA AND TENDON OF L 06/20/2018 [facility] Ot W22.09X A STRIKING AGAINST OTHER STATIONARY OBJECT 06/20/2018 [facility] Ot Z98.1 ARTHRODESIS STATUS 2018 [facility] Ot F17.210 NICOTINE DEPENDENCE, CIGARETTES, UNCOMPL 2018 [facility] Ot I25.2 OLD MYOCARDIAL INFARCTION 2018 [facility] Ot S09.90X A UNSPECIFIED INJURY OF HEAD, INITIAL ENCO 2018 [facility] TRACI RITCHIE Ot S16.1XX A STRAIN OF MUSCLE, FASCIA AND TENDON AT N 2018 [facility] Ot S29.012 A STRAIN OF MUSCLE AND TENDON OF BACK WALL 2018 [facility], TRACI K Ot S39.012 A STRAIN OF MUSCLE, FASCIA AND TENDON OF L 2018 [facility] Ot W22.09X A STRIKING AGAINST [...] PNEUMONIA, UNSPECIFIED ORGANISM 08/09/2018 MENEZES, PETER J MANAGER SALES Ot R10.32 LEFT LOWER QUADRANT PAIN 08/09/2018 MENEZES, MAKSIM Carson MANAGER SALES Ot S39.011A STRAIN OF MUSCLE, FASCIA AND TENDON OF A 08/09/2018 CLIF MAKSIM Carson MANAGER SALES Ot X58.XXXA EXPOSURE TO OTHER SPECIFIED FACTORS, INI 08/09/2018 MENEZES, MAKSIM Carson MANAGER SALES Ot Z98 .1 ARTHRODESIS STATUS 08/13/2018 HATFIELDBELGICA MANAGER SALES Ot J18 .9 PNEUMONIA, UNSPECIFIED ORGANISM 08/13/2018 HATFIELDBELGICA MANAGER SALES Ot R91 .8 OTHER NONSPECIFIC ABNORMAL FINDING OF KEV 12/03/2018 CLIFMAKSIM MANAGER SALES Ot I25 .2 OLD MYOCARDIAL INFARCTION 12/03/2018 MENEZESMAKSIM MANAGER SALES Ot J18 .9 PNEUMONIA, UNSPECIFIED ORGANISM 12/03/2018 CLIF MAKSIM Carson MANAGER SALES Ot R10.32 LEFT LOWER QUADRANT PAIN 12/03/2018 MENEZESMAKSIM MANAGER SALES Ot S39.011A STRAIN OF MUSCLE, FASCIA AND TENDON OF A 12/03/2018 MENEZESMAKSIM MANAGER SALES Ot X58.XXXA EXPOSURE TO OTHER SPECIFIED FACTORS, INI 12/03/2018 MENEZES, MAKSIM Carson MANAGER SALES Ot Z98 .1 ARTHRODESIS STATUS 02/04/2020 BELGICA HATFIELD MANAGER SALES Ot J18 .9 PNEUMONIA, UNSPECIFIED ORGANISM 02/04/2020 BELGICA HATFIELD MANAGER SALES Ot R91 .8 OTHER NONSPECIFIC ABNORMAL FINDING [...] 7-25 CREATININE 0.90 mg/dL 0.60-1.35 eGFR NON-AFR. [place] 100 mL/min/1.73m2 > OR = 60 eGFR [...] pg/mL 200-1100 FOLATE, SERUM 9.2 ng/mL NRG Complete blood count (CBC) with automate d white blood cell (WBC) differential - 03/17/20 23:52 Blood leukocytes automated count (number/volume) 8.8 10*3/uL 4.3-11.0 Blood erythrocytes automated count (number/volume) 5.27 10*6/uL 4.35-5.85 Venous blood hemoglobin measurement (mass/volume) 15.4 g/dL 13.3-17.7 Blood hematocrit (volume fraction) 44 % 40-54 Automated erythrocyte mean corpuscular volume 84 [ foz_us] 80-99 Automated erythrocyte mean corpuscular h emoglobin (mass per erythrocyte) 29 pg 25-34 Automated erythrocyte mean corpuscular h emoglobin concentration measurement (mass/volume) 35 g/dL 32-36 Automated erythrocyte distribution width ratio 12. 9 % 10.0- 14.5 Automated blood platelet count (count/volume) 242 10*3/uL 130-400 Automated blood platelet mean volume measurement 9.1 [foz_us] 7.4-10.4 Automated blood neutrophils/100 leukocytes 54 % 42-75 Automated blood lymphocytes/100 leukocytes 33 % 12-44 Blood monocytes/100 leukocytes 8 % 0-12 Automated blood eosinophils/100 leukocytes 5 % 0-10 Automated blood basophils/100 leukocytes 0 % 0-10 Blood neutrophils automated count (number/volume) 4.8 10*3 1.8-7.8 Blood lymphocytes automated count (number/volume) 2.9 10*3 1.0-4.0 Blood monocytes automated count (number/volume) 0. 7 10*3 0.0-1.0 Automated eosinophil count 0.4 10*3/uL 0 .0-0.3 Automated blood basophil count (count/volume) 0.0 10*3/uL 0.0-0.1 Comprehensive metabolic panel - 03/17/20 23:52 Serum or plasma sodium measurement (moles/volume) 140 mmol/L 135-145 Serum or plasma potassium measurement (moles/volume) 3.6 mmol/L 3.6-5.0 Serum or plasma chloride measurement (moles/volume) 104 mmol/L 98-107 Carbon dioxide 25 mmol/L 21-32 Serum or plasma anion gap determination (moles/volume) 11 mmol/L 5-14 Serum or plasma urea nitrogen measurement (mass/volume ) 13 mg/dL 7-18 Serum or plasma creatinine measurement (mass/volume) 1.14 mg/dL 0.60-1.30 Serum or plasma urea nitrogen/creatinine mass ratio 11 NRG Serum or plasma creatinine measurement w ith calculation of estimated glomerular filtration rate > NRG Serum or plasma glucose measurement (mass/volume) 101 mg/dL 70-105 Serum or plasma calcium measurement (mass/volume) 9.1 mg/dL 8.5-10.1 Serum or plasma total bilirubin measurement (mass/volu me) 0.4 mg/dL 0.1-1.0 Serum or plasma alkaline phosphatase andrés surement (enzymatic activity/volume) 63 U/L 40-136 Serum or plasma aspartate aminotransfera se measurement (enzymatic activity/volume) 18 U/L 5-34 Serum or plasma alanine aminotransferase measurement (enzymatic activity/volume) 20 U/L 0-55 Serum or plasma protein measurement (mass/volume) 7.5 g/dL 6.4-8.2 Serum or plasma albumin measurement (mass/volume) 4.3 g/dL 3.2-4.5 CALCIUM CORRECTED 8.9 mg/dL 8.5-10.1 Magnesium - 03/17/20 23:52 Magnesium 2.3 mg/dL 1.6-2.4 Serum or plasma creatine kinase measurem ent (enzymatic activity/volume) - 03/17/20 23:52 Serum or plasma creatine kinase measurem ent (enzymatic activity/volume) 67 U/L 30-200 Myoglobin, serum - 03/17/20 23:52 Myoglobin, serum 36.1 ng/mL 10.0-92.0 Serum or plasma C reactive protein measu rement (mass/volume) - 03/17/20 23:52 Serum or plasma C reactive protein measurement (mass/v olume) 0.79 mg/dL 0.00-0.50 Serum or plasma troponin i.cardiac measu rement (mass/volume) - 03/17/20 23:52 Serum or plasma troponin i.cardiac measurement (mass/v olume) < ng/mL <0.028 PT panel in platelet poor plasma by coag ulation assay - 03/17/20 23:52 Prothrombin time (PT) in platelet poor plasma by coagu lation assay 13.6 s 12.2-14.7 INR in platelet poor plasma or blood by coagulation as say 1.0 0.8-1.4 Activated partial thromboplastin time (a PTT) in platelet poor plasma bycoagulation assay - 03/17/20 23:52 Activated partial thromboplastin time (a PTT) in platelet poor plasma bycoagulation assay 33 s 24-35 Encounters ACCT No. Visit Date/Time Discharge Status Pt. Type Provider Facility Loc./Unit Complaint [id number] 12/29/2019 13:00:00 12/29/2019 23:59: 59 [id number] 07/25/2019 11:00:00 Document Registration [id number] 08/11/2018 11:20:00 Document Registration [id number] 08/03/2018 08:00:00 Document Registration [id number] 02/04/2020 21:38:00 22:47:00 DIS Outpatient JUSTIN TENA MD [facility] ER SOB, COUGH [id number] 08/12/2018 13:47:00 23:59:59 CLS Outpatient BELGICA HATFIELD APRN [facility] RAD J18.9 [id number] 08/05/2018 19:37:00 22:01:00 DIS Emergency MAKSIM MENEZES APRN [facility] ER COUGH,SIDE PAIN WHEN CO UGHING,SOB [id number] 06/20/2018 19:45:00 018 21:45:00 DIS Emergency TRACI COOPER DO [facility] ER FALL [id number] 12/31/2017 09:03:00 018 11:03:00 DIS Emergency JAMI MARTIN, MARCELLO Castaneda [facility] ER COUGH,CHEST DISCOMFORT,WHEEZING [id number] 03/18/2020 00:03:00 Document Registration
[2020-03-18] MEDS ORDERED: ONDANSETRON 4 MG/2 ML (SDV) Z0FRAN IV PRN (05:00)
[2020-03-18] MEDS ORDERED: morphine INJ 4 MG/ML 1 ML (VIAL/SYRINGE) IV PRN (05:00)
[2020-03-18] MEDS ORDERED: NITROGLYCERIN 0.4 MG SL TABS BTL 25'S SL PRN (05:00)
[2020-03-18 05:23] LABS: CHOLESTEROL 138 MG/DL (< 200); HDL CHOLESTEROL 24 MG/DL (40-60); TRIGLYCERIDES 107 MG/DL (<150); VLDL CHOLESTEROL 21 MG/DL (5-40)
--- NOTE | 2020-03-18 07:09 | Diagnostic Imaging Report ---
INDICATION: Chest pain COMPARISON: 02/04/20 FINDINGS: Single view of the chest demonstrates clear lungs bilaterally. The heart is normal. There is no pneumothorax. Osseous structures are normal. IMPRESSION: Negative chest Dictated by: Dictated on workstation # [id number]
[2020-03-18] MEDS ORDERED: ASPIRIN E.C. 81 MG (ECOTRIN) TAB PO SCH (09:00)
[2020-03-18] MEDS ORDERED: fentaNYL INJECTION 100 MCG/2 ML AMP ONE (09:48)
[2020-03-18] MEDS ORDERED: MIDAZOLAM 5 MG/5 ML (VERSED) VIAL ONE (09:48)
[2020-03-18] MEDS ORDERED: LIDOCAINE 1% INJ 20 ML 20 ML VIAL ONE (09:48)
[2020-03-18] MEDS ORDERED: HEParin (CATH LAB) 2,000 ML IV ONE (09:49)
[2020-03-18] MEDS ORDERED: NS IV 1000 ML 1,000 ML ONE (09:49)
[2020-03-18] MEDS ORDERED: VERAPAMIL 5 MG/2 ML (CALAN) VIAL IV ONE (10:32)
[2020-03-18] MEDS ORDERED: HEParin 1000 UNIT/ML (10ML VIAL) FOR BOLUS ONE (10:32)
[2020-03-18] MEDS ORDERED: NITRO DRIP 25000 MCG/D5W 250 ML IV ONE (10:33)
--- NOTE | 2020-03-18 10:35 | Consultation-Cardiology ---
HPI-Cardiology Cardiology Consultation Date of Consultation 03/18/20 Date of Admission Time Seen by Provider: 10:31 Indication: chest pain HPI 49 years old gentleman with no significant cardiac history, history of tobaccoism. Was electrocuted while working on his friends, had some chest pain at that point. Continue to have chest pain in the afternoon persistent until he came to the emergency room, pain improved after receiving sublingual nitroglycerin, had another episode of chest pain at 8 o'clock in the morning improved after sublingual nitroglycerin. Denied any recent other episodes of chest pain, no shortness of breath, EKG showed mild abnormality. Home Medications & Allergies Allergies: Coded Allergies: No Known Drug Allergies (Unverified , 12/31/17) Home Medication List Reviewed: Yes [id number] Hx Patient Social History Marital Status: Employed/Student: employed Alcohol Use: Rarely Uses Recreational Drug Use: No Type Used: Smokeless Tobacco 2nd Hand Smoke Exposure: No Recent Foreign Travel: No Recent Infectious Disease Expo: No Recent Hopitalizations: No Immunizations Up To Date Tetanus Booster (TDap): Unknown Past Medical History Discussed below Family Medical History Family History: Cardiovascular disease 19 FATHER, Onset:Unknown Diabetes mellitus 19 FATHER, Onset:Unknown Review of Systems-General Review of Systems Constitutional: no symptoms reported, see HPI EENTM: see HPI, no symptoms reported Respiratory: see HPI; No cough, No dyspnea on exertion, No hemoptysis, No orthopnea, No phlegm, No short of breath, No stridor, No wheezing, No other Cardiovascular: see HPI, chest pain; No edema, No Hx of Intervention, No palpitations, No syncope, No vascular heart diseas, No other Gastrointestinal: no symptoms reported, see HPI Genitourinary: no symptoms reported, see HPI Musculoskeletal: no symptoms reported, see HPI Skin: no symptoms reported, see HPI Psychiatric/Neurological: No Symptoms Reported, See HPI Reviewed Test Results Reviewed Test Results Lab Laboratory Tests Test 03/17/20 23:52 03/18/20 05:02 Range/Units White Blood Count 8.8 4.3-11.0 10^3/uL Red Blood Count 5.27 4.35-5.85 10^6/uL Hemoglobin 15.4 13.3-17.7 G/DL Hematocrit 44 40-54 % Mean Corpuscular Volume 84 80-99 FL Mean Corpuscular Hemoglobin 29 25-34 PG Mean Corpuscular Hemoglobin Concent 35 32-36 G/DL Red Cell Distribution Width 12.9 10.0-14.5 % Platelet Count 242 130-400 10^3/uL Mean Platelet Volume 9.1 7.4-10.4 FL Neutrophils (%) (Auto) 54 42-75 % Lymphocytes (%) (Auto) 33 12-44 % Monocytes (%) (Auto) 8 0-12 % Eosinophils (%) (Auto) 5 0-10 % Basophils (%) (Auto) 0 0-10 % Neutrophils # (Auto) 4.8 1.8-7.8 X 10^3 Lymphocytes # (Auto) 2.9 1.0-4.0 X 10^3 Monocytes # (Auto) 0.7 0.0-1.0 X 10^3 Eosinophils # (Auto) 0.4 H 0.0-0.3 10^3/uL Basophils # (Auto) 0.0 0.0-0.1 10^3/uL Prothrombin Time 13.6 12.2-14.7 SEC INR Comment 1.0 0.8-1.4 Activated Partial Thromboplast Time 33 24-35 SEC Sodium Level 140 135-145 MMOL/L Potassium Level 3.6 3.6-5.0 MMOL/L Chloride Level 104 98-107 MMOL/L Carbon Dioxide Level 25 21-32 MMOL/L Anion Gap 11 5-14 MMOL/L Blood Urea Nitrogen 13 7-18 MG/DL Creatinine 1.14 0.60-1.30 MG/DL Estimat Glomerular Filtration Rate > 60 BUN/Creatinine Ratio 11 Glucose Level 101 70-105 MG/DL Calcium Level 9.1 8.5-10.1 MG/DL Corrected Calcium 8.9 8.5-10.1 MG/DL Magnesium Level 2.3 1.6-2.4 MG/DL Total Bilirubin 0.4 0.1-1.0 MG/DL Aspartate Amino Transf (AST/SGOT) 18 5-34 U/L Alanine Aminotransferase (ALT/SGPT) 20 0-55 U/L Alkaline Phosphatase 63 40-136 U/L Total Creatine Kinase 67 30-200 U/L Myoglobin 36.1 10.0-92.0 NG/ML Troponin I < 0.028 < 0.028 <0.028 NG/ML C-Reactive Protein High Sensitivity 0.79 H 0.00-0.50 MG/DL Total Protein 7.5 6.4-8.2 GM/DL Albumin 4.3 3.2-4.5 GM/DL Triglycerides Level 107 <150 MG/DL Cholesterol Level 138 < 200 MG/DL LDL Cholesterol Direct 105 1-129 MG/DL VLDL Cholesterol 21 5-40 MG/DL HDL Cholesterol 24 L 40-60 MG/DL Physical Exam Physical Exam Vital Signs Vital Signs - First Documented 03/18/20 01:54 Pulse Ox 98 Capillary Refill : Less Than 3 Seconds Height, Weight, BMI Height: 6'0" Weight: 220lbs. oz. 99.076298ez; 29.91 BMI Method:Stated General Appearance: No Apparent Distress, WD/WN Eyes: Bilateral Eye Normal Inspection, Bilateral Eye PERRL, Bilateral Eye EOMI HEENT: PERRL/EOMI, Normal ENT Inspection Neck: Normal Inspection; No JVD Respiratory: Chest Non Tender, Lungs Clear, Normal Breath Sounds, No Accessory Muscle Use, No Respiratory Distress Cardiovascular: Regular Rate, Rhythm, No Edema, No Murmur, Normal Peripheral Pulses Gastrointestinal: Normal Bowel Sounds, Non Tender, Soft Back: Normal Inspection, No CVA Tenderness, No Vertebral Tenderness Extremity: Normal Inspection, No Pedal Edema Neurologic/Psychiatric: Alert, Oriented x3, No Motor/Sensory Deficits, Normal Mood/Affect, flue lining dipper II-XII Norm as Tested Skin: Normal Color, Warm/Dry Lymphatic: No Adenopathy A/P-Cardiology Admission Diagnosis Chest pain Hypertension Tobaccoism Family history of atherosclerosis Assessment/Plan Chest pain resembling unstable angina, recurrent episodes over the past 24 hours, responsive to nitroglycerin with mild EKG abnormality, cardiac enzymes were normal. Had another episode this morning with chest pain responded to nitroglycerin, discussed the management plan discussed the need for stress test versus cardiac catheterization, patient elected to have a cardiac catheter ization possible PTCA. Procedure was explained in length, all pros and cons were explained. Hypertension, monitor blood pressure Tobaccoism, educated on avoiding tobacco product Strong family history of heart disease Clinical Quality Measures AMI/AHF: ASA po Prior to arrival: Yes (325MG PO) DVT/VTE Risk/Contraindication: Risk Factor Score Per Nursin RFS Level Per Nursing on Admit: 1=Low/No VTE PPX TRISTIAN MANZO MD March 18, 2020 10:34 am
--- NOTE | 2020-03-18 10:35 | Cardiac Procedure Note-CS/ASA ---
Pre-Procedure Note Pre-Op Procedure Note H&P Reviewed The H&P was reviewed, patient examined and no changes noted. Date H&P Reviewed: March 18, 2020 Time H&P Reviewed: 10:35 Conscious Sedation Pre-Proced Time 10:35 ASA Score 3 For ASA 3 and 4: Consider anesthesia and medical clearance. Also, for patients with a history of failed moderate sedation consider anesthesia. Airway Lungs Heart ASA score ASA 1: a normal healthy patient ASA 2: a patient with a mild systemic disease (mid diabetes, controlled hypertension, obesity x ASA 3: a patient with a severe systemic disease that limits activity (angina, COPD, prior Myocardial infarction) ASA 4: a patient with an incapacitating disease that is a constant threat to life (CHF, renal failure) ASA 5: a moribund patient not expected to survive 24 hrs. (ruptured aneurysm) ASA 6: a declared brain- patient whose organs are being harvested. For emergent operations, add the letter E after the classification Mallampati Classification Grade 3 Sedation Plan Analgesia, Amnesia, Plan communicated to team members, Discussed options with patient/fam, Discussed risks with patient/fam The patient is an appropriate candidate to undergo the planned procedure, sedation, and anesthesia. The patient immediately re-assessed prior to indication. TRISTIAN MANZO MD March 18, 2020 10:35 am
--- NOTE | 2020-03-18 10:40 | Short Stay Summary-Hospitalist ---
History of Present Illness HPI/Chief Complaint CC: Chest pain after shock on electrical fence HPI: This is a 49yoWM clinic patient of Dr Shanel Gonzales for chronic pain management who has a h/o VT in 2002 without intervention who presented to the ER with chest pain after he touched an electrical fence at his brother's house. Patient had NTG which relieved the chest pain along with O2 supplement. Cardiac cath performed by Dr Raza which revealed no coronary stenosis so he was DC in stable condition. Source: patient Exam Limitations: no limitations Date Seen 03/18/20 Time Seen by a Provider: 10:30 Attending Physician Melyssa Galvan Julie A MD Referring Physician Date of Admission March 17, 2020 at 23:47 Home Medications & Allergies Home Medications Reviewed patient Home Medication Reconciliation performed by pharmacy medication reconciliations emg technician and/or nursing. Patients Allergies have been reviewed. Allergies Allergies Coded Allergies No Known Drug Allergies (Unverified12/31/17) Past Xrxadaz-Taemyq-Hbdhcx Hx Past Med/Social Hx: Reviewed Nursing Past Med/Soc Hx, Reviewed and Corrections made Patient Social History Marrital Status: Employed/Student: employed Alcohol Use: Rarely Uses Recreational Drug Use: No Smoking Status: Former Smoker Type Used: Smokeless Tobacco 2nd Hand Smoke Exposure: No Recent Foreign Travel: No Contact w/other who traveled: No Recent Hopitalizations: No Recent Infectious Disease Expo: No Immunizations Up To Date Tetanus Booster (TDap): Unknown Seasonal Allergies Seasonal Allergies: No Past Medical History Surgeries: Orthopedic Cardiac: Heart Attack Musculoskeletal: Chronic Back Pain History of Blood Disorders: No Family History Cardiovascular disease 19 FATHER, Onset:Unknown Diabetes mellitus 19 FATHER, Onset:Unknown Review of Systems Constitutional: see HPI Cardiovascular: chest pain Physical Exam Physical Exam Vital Signs Vital Signs - First Documented 03/18/20 01:54 Pulse Ox 98 Capillary Refill : Less Than 3 Seconds Height, Weight, BMI Height: 6'0" Weight: 220lbs. oz. 99.899264ct; 29.91 BMI Method:Stated General Appearance: No Apparent Distress, WD/WN Eyes: Bilateral Eye Normal Inspection, Bilateral Eye PERRL, Bilateral Eye EOMI HEENT: PERRL/EOMI, Normal ENT Inspection Neck: Normal Inspection; No JVD Respiratory: Chest Non Tender, Lungs Clear, Normal Breath Sounds, No Accessory Muscle Use, No Respiratory Distress Cardiovascular: Regular Rate, Rhythm, No Edema, No Murmur, Normal Peripheral Pulses Gastrointestinal: Normal Bowel Sounds, Non Tender, Soft Back: Normal Inspection, No CVA Tenderness, No Vertebral Tenderness Extremity: Normal Inspection, No Pedal Edema Neurologic/Psychiatric: Alert, Oriented x3, No Motor/Sensory Deficits, Normal Mood/Affect, delimber operator II-XII Norm as Tested Skin: Normal Color, Warm/Dry Lymphatic: No Adenopathy Results Results/Procedures Labs Laboratory Tests 03/17/20 23:52 Patient resulted labs reviewed. Short Stay Diagnosis Discharge Diagnosis-Short Stay Admission Diagnosis Chest pain after electrical shock h/o VT 2002 Chronic back pain Final Discharge Diagnosis Chest pain after electrical shock with negative cardiac cath h/o VT 2002 Chronic back pain Conclusion Plan DC home Diagnosis/Problems Diagnosis/Problems (1) Chest pain Status: Acute Qualifiers: Qualified Codes: R07.9 - Chest pain, unspecified (2) Electric shock Status: Acute Qualifiers: Qualified Codes: T75.4XXA - Electrocution, initial encounter (3) Hypertension Status: Acute Qualifiers: Qualified Codes: I10 - Essential (primary) hypertension Clinical Quality Measures AMI/AHF: ASA po Prior to arrival: Yes (325MG PO) DVT/VTE Risk/Contraindication: Risk Factor Score Per Nursin RFS Level Per Nursing on Admit: 1=Low/No VTE PPX MELYSSA GALVAN DO March 18, 2020 10:40
[2020-03-18] MEDS ORDERED: NS IV 1000 ML 1,000 ML IV SCH ×2 (11:00→11:37)
--- NOTE | 2020-03-18 11:36 | Cardiac Cath Report ---
Cardiac Cath Report Physician (s)/School Photographer (s) Physician TRISTIAN MANZO MD Pre-Procedure Diagnosis Pre-Procedure Diagnosis: chest pain Post-Procedure Note Procedure Start Date: March 18, 2020 Name of Procedure: Coronary angiogram Aortic arch angiogram Findings/Procedure Note PROCEDURE NOTE: 49 years old gentleman with strong family history of heart disease, admitted with chest pain responsive to nitroglycerin, had multiple episode, last episode occurred this morning, minimal EKG changes. Discussed the management plan decided to proceed with cardiac catheterization possible PTCA. During the procedure I noted that the aortic arch appear to be prominent, I performed aortic arch angiogram. After explaining the procedure to the patient, all pros and cons were explained, all questions were answered. The patient signed the consent and then he was placed on the cardiac catheterization laboratory. Groin was prepped SL fashion local anesthesia was used. Sheath placed in the radial artery, [place] catheter was used, unable to cross the aortic valve, echo showed normal LV function. Advanced to the right coronary artery then left coronary artery angiogram was done, I noted prominence of the aortic arch, I pulled the catheter to the aortic arch and angiogram was done. At the end of the procedure the sheath was removed. Vascular band was used FINDINGS: Hemodynamics Aorta 108/73 mean of 90 ANATOMY: Left Main is free of obstructive disease Left Anterior Descending has mild disease at the midportion 40 percent stenosis at most. Nonobstructive disease Left Circumflex is small nondominant artery with no obstructive disease Right Coronory Artery is dominant artery with small vessel disease nonobstructive disease, slow flow in the right coronary artery could be due to small vessel disease or catheter physician. No significant disease was noted LV Gram was not done, catheter did not cross the left ventricle Aorta evaluation done with aortic arch angiogram showed slightly prominent aortic arch and ascending aorta. Normal origin of the innominate artery, left carotid and left subclavian arteries CONCLUSION: 1. Mild coronary artery disease nonobstructive disease, slow flow in the right coronary artery that is a dominant artery probably due to catheter position 2. Mildly prominent ascending aorta and aortic arch. No dissection or significant aneurysm was noted DISCUSSION AND RECOMMENDATION: Chest pain is unlikely to be cardiac. Patient will be discharged home, his blood pressure is well-controlled. Does not require any adjustment of his medication Anesthesia Type: Conscious Sedation Estimated blood loss (mL): 5 ml Contrast Amount: 54 ml Total Radiation Dose: 419 mGy Post-Procedure Diagnosis Post-operative diagnosis: Chest pain Coronary artery disease Back pain Family history of atherosclerosis TRISTIAN MANZO MD March 18, 2020 11:36
--- NOTE | 2020-03-18 11:38 | Discharge Inst-Post CATH ---
Discharge Inst-CATH/EP Problems Reviewed?: Yes Post Cardiac Cath/EP D/C Inst Follow Up/Plan Appointment with Dr. Raza's office in 2-4 weeks <b>CARDIAC CATH/EP PROCEDURE DISCHARGE INSTRUCTIONS</b> ACTIVITY * Go Home directly and rest. * Limit activity of the leg (or wrist if it was used) for 7 days including aerobics, swimming, jogging, bicycling, etc. * Restrict stair-climbing for 7 days if possible, if not, climb up with your non-cath leg, then bring together on the same step. * Avoid lifting, pushing, pulling or excessive movement of the affected extremity for 7 days. * Customary sexual activity may be resumed after 2 days-use caution not to use a position that strains or causes pain to the affected extremity. * No driving for 24 hours. * NO SMOKING. * Avoid straining for bowel movements for 7 days. * Gentle walking on level ground is allowed. * Returning to work will depend on the type of procedure and the results. Your doctor will discuss this with you. CALL YOUR DOCTOR FOR ANY OF THE FOLLOWING: *If bleeding from the puncture site occurs- Apply gentle pressure to site with clean cloth and call your doctor or EMS. * If a knot or lump forms under the skin, increases in size, or causes pain. * If bruising appears to be worsening or moving further down your leg instead of disappearing. * Temperature above 101 F. CARE OF YOUR GROIN INCISION; * Bruising or purple discoloration of the skin near the puncture site is common. * You may shower only, no bathtub bathing for 5 days. Be careful to avoid slipping as your leg may feel stiff. * If a closure device was used on your femoral artery, please see the attached guide regarding care of the device and your leg. * Leave dressing on FOR 24 hours. CARE OF YOUR WRIST INCISION; * Bruising or purple discoloration of the skin near the puncture site is common. * You may shower. * DO NOT submerge wrist. * Leave dressing on FOR 24 hours. TRISTIAN RAZA MD March 18, 2020 11:38
== END 2020-03-18 15:05 | disposition home or self-care (01) ==
LOC: EDUNIT# 23:44 → ER 23:46 → ICU 23:47
PROVIDERS: ADMIT Internal Medicine; ATTEND Internal Medicine
DX: I25.10 Atherosclerotic heart disease of native coronary artery without angina pectoris (principal); T75.4XXA Electrocution, initial encounter; I10 Essential (primary) hypertension; I25.2 Old myocardial infarction; G89.29 Other chronic pain; M54.9 Dorsalgia, unspecified; F17.210 Nicotine dependence, cigarettes, uncomplicated; Z79.899 Other long term (current) drug therapy; Z83.3 Family history of diabetes mellitus; Z79.891 Long term (current) use of opiate analgesic
CPT/HCPCS: 36221; 36415; 71045; 80053; 80061; 82550; 83735; 83874; 84484; 85025; 85610; 85730; 86141; 93005; 93041; 93306; 93454; 96360

== ENCOUNTER → 2023-04-30 | Outpatient (CLI) | payer MEDICARE, OTHER ==
[~2023-04-30] MED LIST changes: +ALBU8.5H6 IH; +CYCL10TA25 PO; -CYCL10TA9 PO; -RT-ALBUINH IH
== END ==
LOC: CARD 09:00
PROVIDERS: ATTEND Pediatrics
DX: I08.3 Combined rheumatic disorders of mitral, aortic and tricuspid valves (principal); I71.21 Aneurysm of the ascending aorta, without rupture
CPT/HCPCS: 93306